=== PATIENT | female | born 1950 | race Caucasian/White ===

== ENCOUNTER 2024-03-23 21:53 | Emergency (ER) | payer MEDICARE, OTHER, SELFPAY ==
--- NOTE | ~2024-03-23 | XR_ITS ---
Portable chest x-ray Comparison: 02/23/2015 Clinical History: Infection Findings: Right-sided Mediport is unchanged. Small right pleural effusion present. Left lung clear. Cardiomediastinal silhouette is stable. Bones and soft tissues are unremarkable. Impression: Small right pleural effusion. Right-sided Mediport. Reviewed, dictated and finalized at location . ENGINEER Impression: Small right pleural effusion. Right-sided Mediport.
[2024-03-23 21:52] VITALS: BP 147/64; PULSE 84; RESP 14; TEMP 36.4; O2SAT 99
--- NOTE | 2024-03-23 22:10 | ECG_ITS ---
Test Date: 2024-03-23 22:31:06 Measurements Intervals [place] Rate: 86 P: 44 IA: 142 QRS: 46 QRSD: 70 T: 69 QT: 325 QTc: 391 Interpretive Statements SINUS RHYTHM No previous ECG available for comparison Electronically Signed On 03-24-2024 18:09:29 [employer] by Chauncey Quigley M.D.
[2024-03-23] MEDS: SODIUM CHLORIDE 0.9% IV 1,000 ML 999 ML IV CONT (22:33)
[2024-03-23 22:46] LABS: Basophils Percent Auto 0.4 % (0.2-1.2); Eosinophils Percent Auto 0.1 % (0-4.4); Hematocrit 38.5 % (37.0-47.0); Hemoglobin 11.5 g/dL (12.0-15.0); Immature Granulocyte Absolute 0.07 K/mm3 (0.00-0.031); Immature Granulocyte Percent A 0.7 % (0-0.5); Lymphocytes Absolute Auto 0.67 K/mm3 (0.9-3.2); Lymphocytes Percent Auto 6.3 % (18.3-44.2); Mean Corpuscular HGB Conc 29.9 g/dl (32-36); Mean Corpuscular Hemoglobin 27.7 pg (26-34); Mean Corpuscular Volume 92.8 fl (80-100); Mean Platelet Volume 9.1 fl (7.4-10.4); Monocytes Absolute Auto 0.5 K/mm3 (0.1-0.6); Monocytes Percent Auto 4.5 % (2.6-8.5); Neutrophils Absolute Auto 9.3 K/mm3 (1.3-6.7); Platelet Count Result 384 k/mm3 (150-375); Red Blood Count 4.15 M/mm3 (4.2-5.4); White Blood Count 10.6 K/mm3 (4.5-10.0)
[2024-03-23 23:00] LABS: Alanine Aminotransferase 14 U/L (6-35); Albumin Level 3.1 g/dL (3.5-5.1); Alkaline Phosphatase 66 U/L (38-126); Anion Gap 2 mmol/L (4-12); Aspartate Amino Transferase 47 U/L (14-36); Bilirubin,Total 0.3 mg/dL (0.2-1.3); Blood Urea Nitrogen 16 mg/dL (7-17); Calcium 9.4 mg/dL (8.4-10.2); Carbon Dioxide 30 mmol/L (22-30); Chloride 104 mmol/L (98-107); Estimated CRCL calculation 70 ml/min; Estimated Glomerular Filt Rate > 60; Glucose 114 mg/dL (65-110); Magnesium 2.1 mg/dL (1.6-2.3); Potassium 4.8 mmol/L (3.4-5.0); Sodium 136 mmol/L (137-145)
[2024-03-23 23:05] VITALS: PULSE 85; RESP 16; O2SAT 97
[2024-03-23 23:15] VITALS: PULSE 83; RESP 17
[2024-03-23 23:22] LABS: Influenza A QL RT-PCR Negative (Negative); Influenza B QL RT-PCR Negative (Negative); SARS-CoV-2 RNA PCR Negative (Negative)
[2024-03-23 23:30] VITALS: PULSE 83; RESP 16
[2024-03-23 23:45] VITALS: PULSE 89; RESP 17; O2SAT 99
--- NOTE | 2024-03-23 23:47 | ED_ITS ---
HPI - General Adult General Chief complaint: Weakness Stated complaint: weakness, dizzy, vomit x 1 Time Seen by Provider: 03/23/24 22:03 History of Present Illness HPI narrative: Patient is a 73-year-old female who presents to the emergency department this evening complaining of generalized weakness and lightheadedness which occurred prior to arrival. Patient states that she was in the kitchen and loading the program project analyst when she had a sudden onset episode of lightheadedness/dizziness and felt like she was going to pass. Patient then was assisted to the floor by her . She denies falling or hitting her head. Patient is currently undergoing chemotherapy for breast cancer. States that she was in remission for 7 years and then this past her breast cancer returned and she started chemotherapy in October. Patient is currently pending evaluation for radiation therapy as she has not responded to the chemotherapy treatment. Patient states that when her symptoms started she felt nauseous but at this time she is currently denying any symptoms stating that her symptoms have completely resolved and she feels great. She denies any active chest pain or shortness of breath, nausea vomiting, abdominal pain, dysuria or hematuria, constipation or diarrhea, fevers or chills. There are no additional modifying, alleviating, or precipitating factors at this time. Related Data Home Medications ?Medication ?Instructions ?Recorded ?Confirmed ?Last Taken ?Type alendronate 70 mg tablet 70 mg PO WEEKLY 05/13/21 05/13/21 Unknown History cholecalciferol (vitamin D3) 50 50 mcg PO DAILY 05/13/21 05/13/21 Unknown History mcg (2,000 unit) capsule rivaroxaban 20 mg tablet (Xarelto) 20 mg PO DAILY 05/13/21 05/13/21 Unknown History Allergies Allergy/AdvReac Type Severity Reaction Status Date / Time No Known Allergies Allergy Verified 03/23/24 22:03 Review of Systems 2 Review of Systems: All systems are reviewed and are negative unless stated otherwise in the HPI. FOR[facility]LY [facility] Past Medical History Medical History Current every day smoker 50 pack-year history Osteoporosis History of DVT of lower extremity right calf Breast cancer metastasized to bone (2016) Cancer of breast Surgical History Surgical History History of left cataract extraction (~2015) Hx of left mastectomy (~09/2015) Family History Family History Father Hypertension Diabetes mellitus Sibling Throat cancer Sibling Dementia Social History Social History Social History: lives with . 3 children/2 girls and 1 boy. 3 grandchildren. Smoking packs per day: 1 Smoking cigarettes per day: 20.0 Years smoked: 50 Smoking pack-years: 50.00 Smoking status: Current every day smoker Tobacco type: cigarettes Alcohol intake: never Substance use: never Substance use type: does not use Living arrangements: with family Occupation/Education: retired Additional occupation/education comments: Teacher Gender identity (if verbalized by the patient): Female Sexual Orientation (if Verbalized by the Patient): Straight or Heterosexual Agree to blood products: Yes Exam 2 Narrative: General: Alert, awake, afebrile, in no acute distress. HEENT: PERRL, no rhinorrhea, no post nasal drip, oropharynx clear. Neck: Trachea midline, no JVD, no lymphadenopathy. Cardiovascular: Regular rate and rhythm, no murmurs, rubs or gallops, no peripheral edema. Respiratory: Clear to auscultation bilaterally, no tachypnea, no wheezing, no rhonchi, no rubs, no respiratory distress. Abdomen: Soft, nontender, nondistended, no rebound, no guarding, no peritoneal signs. Musculoskeletal: No joint swelling or deformity, normal muscle tone, intact bilateral hip flexors and knee extension. Skin: No rashes or petechia, no signs of infection, minor skin abrasions to bilateral forearms. Psychiatric: Alert and oriented, normal behavior and judgment for situation. Neurological: Alert and oriented to person, place, and time. Follows all commands. No focal deficits, speech is clear and fluent. Course Vital Signs Vital signs: Vital Signs Temperature 97.6 F 03/23/24 21:52 Pulse Rate 84 03/23/24 21:52 Respiratory Rate 14 03/23/24 21:52 Blood Pressure 147/64 H 03/23/24 21:52 Pulse Oximetry 99 03/23/24 21:52 Oxygen Delivery Room Air 03/23/24 21:52 Temperature 97.6 F 03/23/24 21:52 Pulse Rate 84 03/23/24 21:52 Respiratory Rate 14 03/23/24 21:52 Blood Pressure 147/64 H 03/23/24 21:52 Pulse Oximetry 99 03/23/24 21:52 Oxygen Delivery Room Air 03/23/24 21:52 Medical Decision Making MDM Narrative Medical decision making narrative: The patient was evaluated by myself in the emergency department. History is obtained from patient who is an independent historian and physical exam was performed. External medical records were reviewed at this time. IV was established and pertinent tests were ordered. Patient was administered 1 L IV fluid bolus with normal saline. EKG was obtained which revealed sinus rhythm at a rate of 86 beats per minute. No ST changes, T wave inversions or evidence of acute ischemia. EKG was independently interpreted by me and is currently pending official cardiology read. Laboratory results obtained revealing no acute process. Troponin negative. Viral swabs negative for COVID/influenza. Urinalysis unremarkable. Imaging studies obtained included CXR which was independently interpreted by me revealing no acute cardiopulmonary process, which is pending final radiology interpretation. At this time, I did discuss obtaining a CT angiogram of the chest to rule out a PE given patient's history of cancer and DVTs, however, patient declined this study. Patient states that she does not tolerate IV contrast well as it upsets her stomach. Patient also states that she has had a lot of recent CT scans of her chest at [facility]. She is also currently on Eliquis. Patient would rather follow-up with her oncologist/primary care physician. Family members present at bedside including the patient's daughter and are agreeable with this plan. Differential diagnosis considerations include dehydration, electrolyte derangements, acute coronary syndrome, pulmonary emboli, arrhythmia. Comorbidities impacting this visit include active of breast cancer currently on chemotherapy. I have evaluated and discussed social determinants of health with the patient that could potentially impact subsequent diagnosis and treatment plans. On repeat assessment of the patient, reevaluation revealed that the patient is doing well and is in no acute distress. Patient symptoms have improved since she arrived to our emergency department. Repeat vital signs were all reviewed and noted to be stable. Differential diagnosis and treatment plan were discussed with the patient at bedside. Patient agrees with discussion and after shared medical decision making agrees with discharge. All questions were answered to the patient's satisfaction. Patient will follow up with her PCP/ Oncologist in 3-5 days. Patient was provided with strict return precautions and instructed to return to the emergency department if any new or worsening symptoms develop. The patient was discharged in stable condition. Vital Signs Vital Signs: Vital Signs Temperature 97.6 F 03/23/24 21:52 Pulse Rate 84 03/23/24 21:52 Respiratory Rate 14 03/23/24 21:52 Blood Pressure 147/64 H 03/23/24 21:52 Pulse Oximetry 99 03/23/24 21:52 Oxygen Delivery Room Air 03/23/24 21:52 Temperature 97.6 F 03/23/24 21:52 Pulse Rate 84 03/23/24 21:52 Respiratory Rate 14 03/23/24 21:52 Blood Pressure 147/64 H 03/23/24 21:52 Pulse Oximetry 99 03/23/24 21:52 Oxygen Delivery Room Air 03/23/24 21:52 Lab Data 03/23/24 22:39 03/23/24 22:39 Labs: Lab Results 03/23/24 03/24/24 Range/Units 22:39 00:32 WBC 10.6 H (4.5-10.0) K/mm3 RBC 4.15 L (4.2-5.4) M/mm3 Hgb 11.5 L (12.0-15.0) g/dL Hct 38.5 (37.0-47.0) % MCV 92.8 (80-100) fl MCH 27.7 (26-34) pg MCHC 29.9 L (32-36) g/dl RDW 15.0 H (11.5-14.5) % Plt Count 384 H (150-375) k/mm3 MPV 9.1 (7.4-10.4) fl Immature Gran % (Auto) 0.7 H (0-0.5) % Neut % (Auto) 88.0 H (45.5-73.1) % Lymph % (Auto) 6.3 L (18.3-44.2) % [place] % (Auto) 4.5 (2.6-8.5) % Eos % (Auto) 0.1 (0-4.4) % Baso % (Auto) 0.4 (0.2-1.2) % Lymph # (Auto) 0.67 L (0.9-3.2) K/mm3 [place] # (Auto) 0.5 (0.1-0.6) K/mm3 Eos # (Auto) 0.0 (0-0.3) K/mm3 Baso # (Auto) 0.0 (0.0-0.1) K/mm3 Abs Immat Gran (auto) 0.07 H (0.00-0.031) K/mm3 Absolute Neuts (auto) 9.3 H (1.3-6.7) K/mm3 Absolute Nucleated RBC 0.000 (0.0-0.012) K/mm3 Nucleated RBC % 0.0 (0.0-0.2) % Sodium 136 L (137-145) mmol/L Potassium 4.8 (3.4-5.0) mmol/L Chloride 104 (98-107) mmol/L Carbon Dioxide 30 (22-30) mmol/L Anion Gap 2 L (4-12) mmol/L BUN 16 (7-17) mg/dL Creatinine 0.49 L (0.7-1.0) mg/dL Estim Creat Clear Calc 70 ml/min Estimated GFR > 60 (59 - ) Glucose 114 H (65-110) mg/dL Calcium 9.4 (8.4-10.2) mg/dL Magnesium 2.1 (1.6-2.3) mg/dL Total Bilirubin 0.3 (0.2-1.3) mg/dL AST 47 H (14-36) U/L ALT 14 (6-35) U/L Alkaline Phosphatase 66 (38-126) U/L Troponin I < 0.012 (0.000-0.034) ng/mL Total Protein 6.0 L (6.3-8.2) g/dL Albumin 3.1 L (3.5-5.1) g/dL Urine Color Yellow (Yellow) Urine Appearance Clear (Clear) Urine pH 6.5 (5.0-9.0) Ur Specific [place] 1.021 (1.001-1.035) Urine Protein Negative (Negative) mg/dL Urine Glucose (UA) Negative (Negative) mg/dL Urine Ketones Trace H (Negative) mg/dL Ur Blood (Man) Negative (Negative) Urine Nitrate Negative (Negative) Urine Bilirubin Negative (Negative) Urine Urobilinogen 0.2 (<2.0) mg/dL Leukocyte Esterase Rfl Negative (Negative) GLADIS/UL Influenza A (RT-PCR) Negative (Negative) Influenza B (RT-PCR) Negative (Negative) SARS-CoV-2 RNA (RT-PCR) Negative (Negative) Discharge Plan Discharge Clinical Impression: Near syncope Patient Disposition: Home, Self-Care Condition: Improved Instructions: Antibiotic Form, Syncope (DC) Additional Instructions: Please follow-up with your primary care physician/oncologist within the next 3-5 days. Return to the emergency department if any new or worsening symptoms develop. Patient Language: Swedish Prescriptions: No Action Xarelto 20 mg tablet 20 mg PO DAILY Rx Instructions: must administer with evening meal cholecalciferol (vitamin D3) 50 mcg (2,000 unit) capsule 50 mcg PO DAILY alendronate 70 mg tablet 70 mg PO WEEKLY Follow-up/Referrals: Katie,Tito Grider MD [Primary Care Provider] - 3 Days Time of Disposition: 00:08
[2024-03-24] VITALS: PULSE 90; RESP 15
[2024-03-24 00:11] LABS: Troponin I < 0.012 ng/mL (0.000-0.034)
[2024-03-24 00:15] VITALS: PULSE 100
[2024-03-24 00:30] VITALS: PULSE 93; RESP 15; O2SAT 96
[2024-03-24 00:38] LABS: Add Urine Microscopic? NO; Appearance Urine Clear (Clear); Bilirubin Urine Negative (Negative); Blood Urine Negative (Negative); Color Urine Yellow (Yellow); Glucose Urine UA Negative (Negative); Ketones Urine Trace mg/dL (Negative); Leukocyte Esterase Ur Negative LEU/UL (Negative); Nitrate Urine Negative (Negative); Protein Urine Negative (Negative); Specific Grav Ur 1.021 (1.001-1.035); Urobilinogen Urine 0.2 mg/dL (<2.0); pH Urine 6.5 (5.0-9.0)
== END 2024-03-24 01:23 | disposition home or self-care (01) ==
PROVIDERS: Emergency Provider Emergency Medicine; PCP Internal Medicine
DX: R55 Syncope and collapse (principal); M81.0 Age-related osteoporosis without current pathological fracture; Z86.718 Personal history of other venous thrombosis and embolism; F17.210 Nicotine dependence, cigarettes, uncomplicated; Z85.3 Personal history of malignant neoplasm of breast; Z85.830 Personal history of malignant neoplasm of bone
CPT/HCPCS: 36415; 71045; 80053; 81003; 83735; 84484; 85025; 87636; 93005; 96360; 99284; J7030

== ENCOUNTER 2024-04-18 09:43 | Emergency (ER) | payer MEDICARE, OTHER, SELFPAY ==
[2024-04-18] VITALS (10 sets, daily range): BP systolic 119–143; BP diastolic 60–76; PULSE 89–99; RESP 15–22; TEMP 37; O2SAT 91–98
--- NOTE | ~2024-04-18 | XR_ITS ---
EXAMINATION: XR chest 1V DATE: 04/18/2024 10:51 INDICATION: Fall. TECHNIQUE: A single frontal view of the chest was obtained. COMPARISON: Chest 03/23/2024 FINDINGS: There is a moderate-sized right pleural effusion. There are airspace opacities at right racheal g base. No pneumothorax. The heart size is normal. There is a right subclavian port with tip in super ior vena cava. There are changes of left mastectomy. IMPRESSION: 1. Moderate-sized right pleural effusion with mild worsening. 2. Airspace opacities at right lung base, consistent with atelectasis versus pneumonia. Reviewed, dictated and finalized at location A. [employer] IMPRESSION: 1. Moderate-sized right pleural effusion with mild worsening. 2. Airspace opacities at right lung base, consistent with atelectasis versus pn eumonia.
--- NOTE | ~2024-04-18 | XR_ITS ---
EXAMINATION: XR hip RT min 3V w AP pelvis DATE: 04/18/2024 10:51 INDICATION: Fall. TECHNIQUE: An anteroposterior view of the pelvis and 3 views of right hip were obtained. COMPARISON: None. FINDINGS: There is a comminuted intertrochanteric and subtrochanteric fracture of proximal right femu r. The main distal fracture fragment demonstrates 20 degrees posterior angulation. There is mild left hip osteoarthritis. There is severe lumbar spondylosis. IMPRESSION: 1. Intertrochanteric and subtrochanteric fracture of proximal right femur. Reviewed, dictated and finalized at location A. STRIPPER
--- OUTSIDE RECORDS SUMMARY | 2024-04-18 09:45 | XMS_ITS | Referral Summary ---
Author Organization [facility] Address [address] [place] [address] Care Team Providers Care Slurry Worker Name Role Phone Unavailable Primary Care Provider Unavailabl e Source Comments [facility],non-owned Affiliates and Associated Physician Practices is amultiple site organization consisting of ambulatory clinics and hospital sitesin [place], [place], [place] and [place]. This disclosure is being madepursuant to the Care Everywhere program and may not contain all information available regarding this patient. Last updated 17.[facility]Port Social History Tobacco Use Types Packs/Day Years Used Date Smoking Tobacco: Never Assessed Sex and Gender Information Value Date Recorded Sex Assigned at Not on file Gender Identity Not on file Sexual Orientation Not on file Plan of Treatment Not on file
--- OUTSIDE RECORDS SUMMARY | 2024-04-18 09:45 | XMS_ITS | Clinical Summary ---
Author Organization [facility] Address [address], [facility] [address] [place] [address] Phone Care Team Providers Care Director Of Individual Giving Name Role Phone Tito Wilson MD Unavailable [phone] Provider, Not On File Primary Care Provider Unav ailable Allergies Active Allergy Reactions Criticality Noted Date Comments Iodinated Contrast Media Other (see Comments) 06/07/2020 Hot, dizzy, flushed Medications Cyanocobalamin (VITAMIN B 12 PO) Take by mouth. Active [place]-3 Fatty Acids (OMEGA-3 FISH OIL PO) Take by mouth. Ac tive Cholecalciferol (Vitamin D3) 50 MCG (1999 UT) TabletIndications: Vitamin D deficiency TAKE 1 TABLET BY MOUTH EVERY DAY 90 Tablet 06/10/19 23 Active vitamin E 100 UNIT Capsule Take 100 Units by mouth. Active alendronate (FOSAMAX) 70 MG TabletIndications: Osteoporosis, unspecified osteoporosis type, unspecified pathological fracture presence TAKE 1 TABLET BY MOUTH EVERY 7 DAYS 12 Tablet 3 10/05/19 24 Active ondansetron (ZOFRAN) 4 MG TabletIndications: Inflammatory carcinoma of left breast (HCC) Take 1 Tablet by mouth every 6 hours as needed for Nausea - 1st line. 40 Tablet 3 10/24/19 24 Active prochlorperazine (COMPAZINE) 10 MG TabletIndications: Inflammatory carcinoma of left breast (HCC) Take 1 Tablet by mouth every 4 hours as needed for Nausea - 1st line. 40 Tablet 3 10/24/19 24 Active apixaban (ELIQUIS) 5 MG TabletIndications: History of Thromboembolic Disease Take 1 Tablet by mouth 2 times daily. Indications: History of Disease involving a Thrombosis or an Embolism 02/07/20 Active apixaban (ELIQUIS) 5 MG TabletIndications: History of Thromboembolic Disease Take 1 Tablet by mouth 2 times daily. Indications: History of Disease involving a Thrombosis or an Embolism 04/03/19 25 Active rivaroxaban (Xarelto) 20 MG TabletIndications: History of Thromboembolic Disease Take 1 Tablet by mouth daily. Take with food. Indications: History of Disease involving a Thrombosis or an Embolism 09/20/19 025 Discontin ued(Avail ability) rivaroxaban (Xarelto) 20 MG TabletIndications: History of Thromboembolic Disease Take 1 Tablet by mouth daily (with dinner). Take with food. Indications: History of Disease involving a Thrombosis or an Embolism 10/18/19 025 Discontin ued(Avail ability) rivaroxaban (Xarelto) 20 MG TabletIndications: History of Thromboembolic Disease Take 1 Tablet by mouth daily. Take with food. Indications: History of Disease involving a Thrombosis or an Embolism 12/06/19 025 Discontin ued(Avail ability) rivaroxaban (Xarelto) 20 MG TabletIndications: History of Thromboembolic Disease Take 1 Tablet by mouth daily. Take with food. Indications: History of Disease involving a Thrombosis or an Embolism 12/27/19 025 Discontin ued(Avail ability) rivaroxaban (XARELTO) 20 MG TabletIndications: History of Thromboembolic Disease Take 1 Tablet by mouth daily (with dinner). Take with food. 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 Resolved Problems Problem Noted Date Diagnosed Date Resolved Date Constipation 07/08/2015 10/07/2015 Hypokalemia 04/08/2015 06/03/2015 Constipation 03/04/2015 06/17/2015 Nausea 03/04/2015 06/17/2015 Right leg swelling 02/18/2015 6 Encounters Date Type Department Care Team Description 04/10/2024 10:15 AM BENCH ASSEMBLER BATTERY Office Visit [facility] [address] [address] Meredith Colon, HEALTH PROMOTION EDUCATOR, GOLD RECLAIMER 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) 04/10/2024 Travel 04/03/2024 10:30 AM BENCH ASSEMBLER BATTERY Clinical Support [facility] [address] [address] Nurse, [facility] [place] 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) 04/03/2024 10:15 AM BENCH ASSEMBLER BATTERY Office Visit [facility] [address] [address] Meredith Colon, HEALTH PROMOTION EDUCATOR, GOLD RECLAIMER 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) 04/03/2024 Travel 03/25/2024 10:00 AM BENCH ASSEMBLER BATTERY Care Management [facility] [address] [phone] Navigator, [facility] Nurse Care Management (EDUCATION PREP) 03/20/2024 9:45 AM BENCH ASSEMBLER BATTERY Clinical Support [facility] [address] [address] 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); Malignant neoplasm metastatic to bone (HCC) 03/20/2024 9:30 AM BENCH ASSEMBLER BATTERY Office Visit [facility] [address] [address] Tito Wilson MD Malignant neoplasm metastatic to bone (HCC) (Primary Dx); Memory changes; Elevated liver enzymes; Inflammatory carcinoma of left breast (HCC) 03/20/2024 Refill [facility] [address] [address] Tito Wilson MD Medication Refill 03/20/2024 Travel 02/28/2024 9:45 AM BENCH ASSEMBLER BATTERY Clinical Support [facility] [address] [place] [phone] 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); Malignant neoplasm metastatic to bone (HCC); Elevated liver enzymes; Memory changes 02/28/2024 Travel 02/07/2024 9:30 AM BENCH ASSEMBLER BATTERY Clinical Support [facility] [address] [facility] [address] [address] 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); Acute deep vein thrombosis (DVT) of femoral vein of right lower extremity (HCC); Acute deep vein thrombosis (DVT) of right lower extremity, unspecified vein (HCC) 02/07/2024 9:15 AM BENCH ASSEMBLER BATTERY Office Visit [facility] [address] [address] Tito Wilson MD Malignant neoplasm metastatic to bone (HCC) (Primary Dx); Hypercalcemia; Elevated liver enzymes; Memory changes; Inflammatory carcinoma of left breast (HCC); Acute deep vein thrombosis (DVT) of femoral vein of right lower extremity (HCC) 02/07/2024 Travel 01/17/2024 9:45 AM BENCH ASSEMBLER BATTERY Clinical Support [facility] [address] [address] 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) 01/17/2024 9:30 AM BENCH ASSEMBLER BATTERY Office Visit [facility] [address] [phone] Meredith Colon, HEALTH PROMOTION EDUCATOR, GOLD RECLAIMER 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); Malignant neoplasm metastatic to bone (HCC); High risk medication use 01/17/2024 Travel from Last 3 Months Immunizations Immunization Administration Dates Next Due Covid-19 Vaccine, Vector-nr, Rs-ad26, Pf, 0.5 Ml (Room 21 Media/J&CRMnext) 06/09/2020 Family History Medical History Relation Name Comments Cancer Brother throat Diabetes Father type 2 Heart Attack Father 2 of them Hypertension Father Stroke Mother Relation Name Status Comments Brother Father Mother Social History Tobacco Use Types Packs/Day Years Used Date Smoking Tobacco: Former Cigarettes 1 53.1 S tarted: 03/05/1971 Smokeless Tobacco: Never Tobacco Cessation:Counseling Given: Not Answered Alcohol Use Standard Drinks/Week Comments Yes 4 (1 standard drink = 0.6 oz pur e alcohol) PHQ-2 Answer Date Recorded Total Score - Questions 1-9 0 04/2021 Comments Unknown Sex and Gender Information Value Date Recorded Sex Assigned at Not on file Legal Sex Female 10:58 AM BENCH ASSEMBLER BATTERY Gender Identity Not on file Sexual Orientation Not on file Last Filed Vital Signs Vital Sign Reading Time Taken Comments Blood Pressure 152/84 04/10/2024 10:08 AM BENCH ASSEMBLER BATTERY Pulse 115 04/10/2024 10:08 AM BENCH ASSEMBLER BATTERY Temperature 36.8 C (98.3 F) 04/10/2024 10:08 AM BENCH ASSEMBLER BATTERY Respiratory Rate 18 04/10/2024 10:08 AM BENCH ASSEMBLER BATTERY Oxygen Saturation 95% 04/10/2024 10:08 AM BENCH ASSEMBLER BATTERY Inhaled Oxygen Concentration - - Weight 54.4 kg (120 lb) 04/10/2024 10:08 AM BENCH ASSEMBLER BATTERY Height 160 cm (5' 3 ) 04/10/2024 10:08 AM BENCH ASSEMBLER BATTERY Body Mass Index 21.26 04/10/2024 10:08 AM BENCH ASSEMBLER BATTERY Plan of Treatment Upcoming Encounters Date Type Department Care Team (Late st Contact Info) Description 04/24/2024 10:15 AM BENCH ASSEMBLER BATTERY Office Visit [facility] [address] [address] Meredith Colon, HEALTH PROMOTION EDUCATOR, GOLD RECLAIMER [address] [place], [place] [phone] 05/01/2024 10:30 AM BENCH ASSEMBLER BATTERY Clinical Support [facility] [address] [address] Nurse, [facility] [place] Health Maintenance Due Date Last Done Comments Hepatitis C Virus (HCV) Screening 1950 TdaP Immunization 1950 Pneumococcal Immunization (50+ years) (1 of 2 - PCV) 1969 Zoster Immunization (1 of 2) 1969 Colonoscopy 11/25/1995 Colorectal Cancer Screening 11/25/1995 Cologuard 2000 Immunochemical Fecal Occult Blood 2000 Respiratory Syncytial Virus (RSV) Immunization (Adult) (1 - Risk 60-74 years 1-dose series) 2010 Mammogram 07/13/2023 07/12/2022, 02/18/2015 Influenza Immunization (#1) 2023 SARS-COV-2 Immunization ( season) 2023 03/15/2021, 06/09/2020 DEXA Bone Density 01/19/2025 01/19/2023, 12/30/2020 Lung Cancer Screening Discontinued 02/01/2024 , 08/23/2023, 02/19/2023, Additional history exists Hepatitis B Immunization Aged Out No longer eligible based on patient's age to complete this topic Meningococcal Immunization (ACWY) Aged Out No longer eligible based on patient's age to complete this topic Rotavirus Immunization Aged Out No lo nger eligible based on patient's age to complete this topic Procedures Procedure Name Priority Date/Time Associated Diagnosis Comments CBC WITH AUTO DIFF OH Routine 02/28/2024 9:34 AM BENCH ASSEMBLER BATTERY Inflammatory carcinoma of left breast (HCC) CMP (COMPREHENSIVE METABOLIC PANEL) Routine 02/28/2024 9:34 AM BENCH ASSEMBLER BATTERY Malignant neoplasm metastatic to bone (HCC) Elevated liver enzymes Memory changes Inflammatory carcinoma of left breast (HCC) LACTATE DEHYDROGENASE (LD) Routine 02/28/2024 9:34 AM BENCH ASSEMBLER BATTERY Malignant neoplasm metastatic to bone (HCC) Elevated liver enzymes Memory changes Inflammatory carcinoma of left breast (HCC) CANCER ANTIGEN (CA) 15-3 Routine 024 9:34 AM BENCH ASSEMBLER BATTERY Malignant neoplasm metastatic to bone (HCC) Elevated liver enzymes Memory changes Inflammatory carcinoma of left breast (HCC) CARCINOEMBRYONIC ANTIGEN (CEA) Routine 02/28/2024 9:34 AM BENCH ASSEMBLER BATTERY Malignant neoplasm metastatic to bone (HCC) Elevated liver enzymes Memory changes Inflammatory carcinoma of left breast (HCC) CT CHEST W CONTRAST Routine 03/12/2017 from Last 3 Months or Most Recently Relevant to Health Maintenance Results * (ABNORMAL) CBC WITH AUTO DIFF OH (02/28/2024 9:34 AM BENCH ASSEMBLER BATTERY) WBC 5.3 4.0 - 10.0 10*3/uL [facility] HGB 11.4 11.2 - 15.7 g/dL [facility] HCT 37.2 34.1 - 44.9 % [facility] PLT 475(H) 163 - 369 10*3/uL [facility] MPV 8.7(L) 9.4 - 12.4 fL [facility] RBC 4.07 3.93 - 5.22 10*6/uL [facility] MCV 91 79 - 95 fL [facility] MCH 28.0 25.6 - 32.2 pg [facility] MCHC 30.6(L) 32.2 - 36.5 g/dL [facility] RDW 14.6(H) 11.6 - 14.4 % [facility] Neutrophils % 67.9(H) 36.0 - 66.0 % [facility] Lymphocytes % 20.6 19.0 - 40.0 % [facility] Monocytes % 8.9 4.1 - 12.1 % [facility] Eosinophils % 1.1 0.0 - 3.5 % [facility] Basophils % 1.3(H) 0.0 - 1.0 % [facility] Absolute Neutrophils 3.6 1.4 - 6.6 10*3/uL [facility] Absolute Lymphocytes 1.1 0.8 - 4.0 10*3/uL [facility] Absolute Monocytes 0.5 0.2 - 1.2 10*3/uL [facility] Absolute Eosinophils 0.1 0.0 - 0.4 10*3/uL [facility] Absolute Basophils 0.1 0.0 - 0.1 10*3/uL [facility] 02/28/2024 9:34 AM BENCH ASSEMBLER BATTERY us Tito Wilson MD LAB SEND OUTS Final Resul t [facility] [address] [address], [place] [phone] * (ABNORMAL) LACTATE DEHYDROGENASE (LD) (02/28/2024 9:34 AM BENCH ASSEMBLER BATTERY) LDH 120(L) 140 - 271 U/L [facility] Blood 02/28/2024 9:34 AM BENCH ASSEMBLER BATTERY Narrative [facility] - 02/28/2024 10:38 AM BENCH ASSEMBLER BATTERY Release to patient->Immediate Tito Wilson MD CHEMISTRY ORDERABLES Final Result [facility] [address] [address], [place] [phone] * (ABNORMAL) CMP (COMPREHENSIVE METABOLIC PANEL) (02/28/2024 9:34 AM BENCH ASSEMBLER BATTERY) Glucose 107(H) 70 - 105 mg/dL [facility] Blood Urea Nitrogen 13 7 - 25 mg/dL [facility] Creatinine 0.5(L) 0.6 - 1.2 mg/dL [facility] Sodium 141 136 - 145 mEq/L [facility] Potassium 4.0 3.5 - 5.1 mEq/L [facility] Chloride 105 98 - 107 mEq/L [facility] Bicarbonate 29 21 - 31 mEq/L [facility] Total Bilirubin 0.2(L) 0.3 - 1.0 mg/dL [facility] Alk. Phosphatase 47 34 - 104 U/L [facility] Aspartate Aminotransferase 20 13 - 39 U/L [facility] Alanine Aminotransferase 9 7 - 52 U/L [facility] Total Protein 5.7(L) 6.4 - 8.9 g/dL [facility] Albumin 3.4(L) 3.5 - 5.7 g/dL [facility] Calcium 9.9 8.6 - 10.3 mg/dL [facility] Anion Gap 11.0 7.0 - 15.0 mEq/L [facility] Globulin 2.3 2.0 - 3.5 g/dL [facility] EGFR 99 >60 ml/min/1. 73m2 [facility] Comment: This eGFR is calculated using 2020 CKD-EPI Creatinine equation without race modifier based on the NKF-ASN task force recommendations Blood 02/28/2024 9:34 AM BENCH ASSEMBLER BATTERY Narrative [facility] - 02/28/2024 10:38 AM BENCH ASSEMBLER BATTERY Release to patient->Immediate IS THE PATIENT REQUIRED TO BE FASTING FOR 8 HOURS?->No us Tito Wilson MD CHEMISTRY ORDERABLES Final Result Performing Organization Address City/[facility]/ZIP Co de Phone Number [facility] [address] [place] [address], [place] [phone] * (ABNORMAL) CARCINOEMBRYONIC ANTIGEN (CEA) (02/28/2024 9:34 AM BENCH ASSEMBLER BATTERY) CEA 5.3(H) 0.0 - 5.0 ng/mL [facility] Comment: Olivier Paramagnetic Particle Chemiluminescent Immunoassay Method Blood 02/28/2024 9:34 AM BENCH ASSEMBLER BATTERY Narrative [facility] - 02/29/2024 11:15 AM BENCH ASSEMBLER BATTERY Release to patient->Immediate us Tito Wilson MD CHEMISTRY ORDERABLES Final Result [facility] [address] [place] [address], [place] [phone] * (ABNORMAL) CANCER ANTIGEN (CA) 15-3 (02/28/2024 9:34 AM BENCH ASSEMBLER BATTERY) CA15-3 35.5(H) 0.0 - 31.3 U/mL [facility] Comment: Olivier Paramagnetic Particle Chemiluminescent Immunoassay Method Blood 02/28/2024 9:34 AM BENCH ASSEMBLER BATTERY Narrative [facility] - 02/29/2024 11:31 AM BENCH ASSEMBLER BATTERY Release to patient->Immediate Tito Wilson MD CHEMISTRY ORDERABLES Final Result [facility] [address] [place] [address], [place] [phone] * CT CHEST W CONTRAST (03/12/2017) Anatomical Region Laterality Modality Chest N/A Other us Tito Wilson MD IMG CT ORDERABLES Final Res ult from Last 3 Months or Most Recently Relevant to Health Maintenance Insurance MEDICARE [employer] Care Teams Director Of Individual Giving Relationship Specialty Start Date End Date Provider, Not On File [place] PCP - General 06/29/22 Tito Wilson MD [address] [place] [phone] Consulting Physician Oncology 08/17/16
--- OUTSIDE RECORDS SUMMARY | 2024-04-18 09:45 | XMS_ITS | Encounter Summary ---
Author Organization [facility] Address [address] [place] [address] Phone Care Team Providers Care Pipe Coremaker Name Role Phone Aftab Bauer MD Primary Care Provider [phone] Tito Wilson MD Unavailable [phone] Provider, Not On File Primary Care Provider Unav ailable Reason for Visit * Reason Comments Medication Refill Encounter Details Date Type Department Care Team (Late st Contact Info) Description 06/09/2022 Refill [facility] [address] [address] Alyssa Daniel, TRAFFIC MONITOR SPECIALIST, FILM SOUND COORDINATOR [address] [place] [address] Medication Refill Social History Tobacco Use Types Packs/Day Years Used Date Smoking Tobacco: Every Day Cigarettes 1 53.1 Started: 03/05/1971 Smokeless Tobacco: Never Alcohol Use Standard Drinks/Week Comments Yes 4 (1 standard drink = 0.6 oz pur e alcohol) PHQ-2 Answer Date Recorded Total Score - Questions 1-9 0 06/0 04/2021 Comments Unknown Sex and Gender Information Value Date Recorded Sex Assigned at Not on file Legal Sex Female 10:58 AM DEHYDRATOR TENDER Gender Identity Not on file Sexual Orientation Not on file COVID-19 Exposure Response Date Recorded In the last 10 days, have yo u been in contact with someone who was confirmed or suspected to have Coronavirus/COVID-19? No / Unsure 06/08/2022 1:50 PM CDT documented as of this encounter Plan of Treatment Upcoming Encounters Date Type Department Care Team (Late st Contact Info) Description 04/24/2024 10:15 AM DEHYDRATOR TENDER Office Visit [facility] [address] [address] Meredith Colon, TRAFFIC MONITOR SPECIALIST, FILM SOUND COORDINATOR [address] [place] [address] 05/01/2024 10:30 AM DEHYDRATOR TENDER Clinical Support [facility] [address] [address] [address] Nurse, [facility] [place] documented as of this encounter Visit Diagnoses Diagnosis Vitamin D deficiency Unspecified vitamin D deficiency documented in this encounter Additional Health Concerns Assessment Noted Time PHQ-9 Depression Total Score: 0 01/14/20 21 1:59 PM DEHYDRATOR TENDER documented as of this encounter Care Teams Pipe Coremaker Relationship Specialty Start Date End Date Aftab Bauer MD [address] [place] [address] PCP - General Family Medicine 03/04/15 06/18/22 Provider, Not On File [place] PCP - General 06/29/22 Tito Wilson MD [address] [place] [address] Consulting Physician Oncology 08/17/16 documented as of this encounter
--- OUTSIDE RECORDS SUMMARY | 2024-04-18 09:45 | XMS_ITS | Clinical Summary ---
Author Organization [facility] Address [address] [place] [address] Care Team Providers Care Bell Staff Name Role Phone Daniela Wilson MD Unavailable [phone] Merari Eller MD Primary Care Provider Talon Hunter MD Unavailable Allergies No known active allergies Medications rivaroxaban (XARELTO) 20 MG Tab tablet Take 1 tablet (20 mg total) by mouth. 9 Active Ca Phosphate-Ramona calciferol 115-2000 MG-UNIT Tab Active OMEGA-3 FATTY ACIDS OR Active vitamin B-12 1000 MCG tablet Acti ve vitamin E 100 UNIT capsule Take 1 capsule (100 Units total) by mouth daily. Active alendronate (FOSAMAX) 70 MG tablet Take 1 tablet (70 mg total) by mouth every 7 days. Active Cholecalciferol 50 MCG (2000 UT) Tab Take 1 tablet by mouth daily. 3 Active palbociclib (IBRANCE) 75 MG capsule Take 75 mg by mouth. 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 Encounters Date Type Department Care Team Description 04/08/2024 9:10 AM STATE EDITOR - 04/08/2024 11:59 PM STATE EDITOR Hospital Encounter [facility] [address] [place] [address] Meredith Zurita NP Discharge Disposition: Home or Self Care (Routine Discharge) 04/08/2024 Orders Only [facility] [address] [place] [address] Meredith Zurita NP 04/08/2024 Travel 03/28/2024 12:45 PM STATE EDITOR - 03/28/2024 11:59 PM STATE EDITOR Hospital Encounter [facility] Radiation Oncology [address] [place] [address] [place] [address] Talon Hunter MD Consult Discharge Disposition: Home or Self Care (Routine Discharge) 03/28/2024 Travel 03/20/2024 Telephone [facility] Radiation Oncology [address] [place] [address] [place] [address] Talon Hunter MD Appointment Request 03/20/2024 Orders Only [facility] [place] [address] Daniela Wilson MD 03/18/2024 10:05 AM STATE EDITOR - 03/18/2024 11:59 PM STATE EDITOR Hospital Encounter [facility] [address] [place] [address] Daniela Wilson MD Discharge Disposition: Home or Self Care (Routine Discharge) 03/18/2024 Orders Only [facility] [address] [place] [address] Daniela Wilson MD 03/18/2024 Travel 02/11/2024 8:34 AM STATE EDITOR - 02/11/2024 11:59 PM STATE EDITOR Hospital Encounter [facility] Nuclear Medicine [address] [place] [address] Meredith Zurita NP Discharge Disposition: Home or Self Care (Routine Discharge) 02/11/2024 Travel 02/05/2024 9:43 AM STATE EDITOR - 02/05/2024 11:59 PM STATE EDITOR Hospital Encounter [facility] [address] [facility] [place] [address] Meredith Zurita NP Discharge Disposition: Home or Self Care (Routine Discharge) 02/05/[address] [facility] [id number] [place] [address] Meredith Zurita NP 02/05/2024 Travel 02/01/2024 8:43 AM STATE EDITOR - 02/01/2024 11:59 PM STATE EDITOR [place] [address] [place] [address] Meredith Zurita NP Discharge Disposition: Home or Self Care (Routine Discharge) 02/01/2024 Travel 01/22/2024 8:38 AM STATE EDITOR - 01/22/2024 11:59 PM STATE EDITOR Hospital Encounter [facility] [address] [place] [address] Meredith Zurita NP Discharge Disposition: Home or Self Care (Routine Discharge) 01/22/2024 Travel 01/17/2024 Transcribe Orders [facility] Pre Access Team [address] [place] [address] Meredith Zurita NP from Last 3 Months Family History Medical History Relation Comments throat cancer Brother Diabetes Father Heart Attack Father x2 Hypertension Father Stroke Mother Breast Cancer Neg Hx Relation Status Comments Brother Father Mother Social History Tobacco Use Types Packs/Day Years Used Date Smoking Tobacco: Former Cigarettes 1 46.6 S tarted: 09/02/1977 Smokeless Tobacco: Never Tobacco Cessation:Counseling Given: Not Answered Alcohol Use Standard Drinks/Week Comments No 0 (1 standard drink = 0.6 oz pur e alcohol) AUDIT-C Answer Date Recorded Frequency of Alcohol Consumption Never 09/27/2018 Average Number of Drinks Not on file 019 Frequency of Binge Drinking Not on file 09/03 PHQ-2 Answer Date Recorded Patient Health Questionnaire-2 Score 0 06/15/2022 Comments No Sex and Gender Information Value Date Recorded Sex Assigned at Female 03/18/2024 10:11 AM STATE EDITOR Legal Sex Female 8:28 PM CDT Gender Identity Not on file Sexual Orientation Not on file Last Filed Vital Signs Vital Sign Reading Time Taken Comments Blood Pressure 129/82 03/28/2024 1:17 PM STATE EDITOR Pulse 103 03/28/2024 1:17 PM STATE EDITOR Temperature 36.8 C (98.2 F) 06/15/2022 3:09 PM CDT Respiratory Rate 18 07/07/2022 3:22 PM CDT Oxygen Saturation 94% 03/28/2024 1:17 PM STATE EDITOR Inhaled Oxygen Concentration - - Weight 53.7 kg (118 lb 6.4 oz) 06/15/2022 3:09 P M CDT Height 160 cm (5' 3 ) 03/28/2024 1:17 PM STATE EDITOR Body Mass Index 21.66 06/15/2022 3:09 PM CDT Plan of Treatment Health Maintenance Due Date Last Done Comments Colorectal Cancer Screening Colonoscopy (10 Years) 1950 Pneumococcal Vaccine: 65+ Years (1 of 2 - PCV) 1956 Hepatitis C 1968 DTaP, Tdap and Td Vaccines ( 1 - Tdap) 1969 Zoster Vaccines (1 of 2) 2000 RSV Immunization or 60+ Years (1 - Risk 60-74 years 1-dose series) 2010 Annual Medicare Wellness Visit 11/25/2015 COVID-19 Vaccine (2 - 2023-2 5 season) 2023 06/09/2020 Influenza Adult (#1) 2023 PHQ-2 (Physician [place]) 03/05/2024 06/15/2022 Mammogram Screening 07/12/2024 07/12/2022, 06/12/2017 Dexa Scan (General) Completed 01/19/2023, 01/19/2023, 12/30/2020 Meningococcal B Vaccine Aged Out No l onger eligible based on patient's age to complete this topic Meningococcal Vaccine Aged Out No nikolas macy eligible based on patient's age to complete this topic RSV Immunizations Under 20 Months Aged Out No longer eligible b ased on patient's age to complete this topic Procedures Procedure Name Priority Date/Time Associated Diagnosis Comments COMPREHENSIVE METABOLIC PANEL Routine 04/08/2024 9:16 AM STATE EDITOR 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) CBC W/DIFF AUTOMATED Routine 04/08/2024 9:16 AM STATE EDITOR 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) CA 15 3, SERUM Routine 03/18/2024 10:24 AM STATE EDITOR Malignant neoplasm metastatic to bone (CMS/HCC HHS/HCC) Elevated liver enzymes Memory changes 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) CARCINOEMBRYONIC ANTIGEN Routine 025 10:24 AM STATE EDITOR Malignant neoplasm metastatic to bone (CMS/HCC HHS/HCC) Elevated liver enzymes Memory changes 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) LDH, LACTATE DEHYDROGENASE Routine 03/18/2024 10:24 AM STATE EDITOR Malignant neoplasm metastatic to bone (CMS/HCC HHS/HCC) Elevated liver enzymes Memory changes COMPREHENSIVE METABOLIC PANEL Routine 03/18/2024 10:24 AM STATE EDITOR Malignant neoplasm metastatic to bone (CMS/HCC HHS/HCC) Elevated liver enzymes Memory changes CBC W/DIFF AUTOMATED Routine 03/18/2024 10:24 AM STATE EDITOR Malignant neoplasm metastatic to bone (CMS/HCC HHS/HCC) Elevated liver enzymes Memory changes NM BONE SCAN WHOLE BODY WO SPECT Routine 02/11/2024 11:46 AM STATE EDITOR Metastasis to bone (CMS/HCC HHS/HCC) CA 15 3, SERUM Routine 02/05/2024 10:06 AM STATE EDITOR 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) Malignant neoplasm metastatic to bone (CMS/HCC HHS/HCC) CARCINOEMBRYONIC ANTIGEN Routine 024 10:06 AM STATE EDITOR 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) Malignant neoplasm metastatic to bone (CMS/HCC HHS/HCC) LDH, LACTATE DEHYDROGENASE Routine 02/05/2024 10:06 AM STATE EDITOR 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) Malignant neoplasm metastatic to bone (CMS/HCC HHS/HCC) COMPREHENSIVE METABOLIC PANEL Routine 02/05/2024 10:06 AM STATE EDITOR 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) Malignant neoplasm metastatic to bone (CMS/HCC HHS/HCC) CBC W/DIFF AUTOMATED Routine 02/05/2024 10:06 AM STATE EDITOR 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) Malignant neoplasm metastatic to bone (CMS/HCC HHS/HCC) CT CHEST+ABD+PEL WO CON Routine 02/01/20 8:56 AM STATE EDITOR Metastasis to bone (CMS/HCC HHS/HCC) USE ECHOCARDIOGRAM Routine 01/22/2024 9: 18 AM STATE EDITOR High risk medication use BONE DENSITY/DEXA DEB 01/19/2023 10: 08 AM STATE EDITOR Osteoporosis, unspecified osteoporosis type, unspecified pathological fracture presence Malignant neoplasm of axillary tail of left breast in female, estrogen receptor positive (CMS/HCC HHS/HCC) MG DIAG ADD VIEW W [facility] RT Routine 07/12/2022 10:29 AM CDT 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 GLUCOSE 106(H) 70 - 99 MG/DL 04/08/2024 9:58 AM [facility] BUN 14 7 - 18 MG/DL 04/08/2024 9:58 AM [facility] CREATININE S/P/B 0.63 0.55 - 1.02 MG/DL 04/08/2024 9:58 AM [facility] SODIUM S/P/B 143 136 - 145 MMOL/L 04/08/2024 9:58 AM [facility] POTASSIUM S/P/B 3.6 3.5 - 5.1 MMOL/L 04/08/2024 9:58 AM [facility] CHLORIDE S/P/B 105 100 - 108 MMOL/L 04/08/2024 9:58 AM [facility] CO2 31.1 21 - 32 MMOL/L 04/08/2024 9:58 AM [facility] CALCIUM S/P/B 9.8 8.5 - 10.1 MG/DL 04/08/2024 9:58 AM [facility] BILIRUBIN TOTAL S/P/B 0.2 0.2 - 1.2 MG/DL 04/08/2024 9:58 AM [facility] TOTAL PROTEIN S/P/B 5.6(L) 6.4 - 8.2 G/DL 04/08/2024 9:58 AM [facility] ALBUMIN S/P/B 2.8(L) 3.4 - 5.0 G/DL 04/08/2024 9:58 AM [facility] AST 33 15 - 37 U/L 04/08/2024 9:58 AM [facility] ALT 16 14 - 55 U/L 04/08/2024 9:58 AM [facility] ALKALINE PHOSPHATASE S/P/B 72 50 - 136 U/L 04/08/2024 9:58 AM [facility] ANION GAP 6.9 5 - 15 MMOL/L 04/08/2024 9:58 AM [facility] BUN CREATININE RATIO 22.2 6 - 26 04/08/2024 9:58 AM [facility] A/G RATIO 1.0 1.0 - 2.0 RATIO 04/08/2024 9:58 AM [facility] GFR ESTIMATE >90 >90 ML/MIN/1.7 3 M2 04/08/2024 9:58 AM [facility] Comment: NOTE: eGFR is not calculated for patients <18 years of age. This is an estimated GFR calculation using the new CKD EPI creatinine equation without race and so does not require a correction factor for race. This estimated GFR should not be used for calculating drug doses. 04/08/2024 9:16 AM STATE EDITOR Meredith Zurita NP LABORATORY Final Result [facility] [address] [place] [address], * (ABNORMAL) CBC W/DIFF AUTOMATED (04/08/2024 9:16 AM STATE EDITOR) Only the most recent of3 resultswithin the time period is included. WBC 4.87 4.4 - 11.0 x10'3/uL 04/08/2024 9:38 AM [facility] RBC 4.22(L) 4.50 - 5.10 x10'6/uL 04/08/2024 9:38 AM [facility] HGB 11.7(L) 12.3 - 15.3 G/DL 04/08/2024 9:38 AM [facility] HCT 37.4 35.9 - 44.6 % 04/08/2024 9:38 AM [facility] MCV 88.6 80.0 - 96.0 FL 04/08/2024 9:38 AM [facility] MCH 27.7 25.3 - 30.9 PG 04/08/2024 9:38 AM [facility] MCHC 31.3 31.0 - 34.1 G/DL 04/08/2024 9:38 AM [facility] RDW 15.3(H) 12.4 - 15.1 % 04/08/2024 9:38 AM [facility] PLT 549(H) 151 - 353 x10'3/uL 04/08/2024 9:38 AM [facility] MPV 8.7(L) 9.6 - 12.0 FL 04/08/2024 9:38 AM [facility] RBC MORPHOLOGY NORMAL 04/08/2024 9:38 AM [facility] PLT MORPH. NORMAL 04/08/2024 9:38 AM [facility] WBC MORPHOLOGY NORMAL 04/08/2024 9:38 AM [facility] LYMPHOCYTES % 21.6 15.8 - 45.0 % 04/08/2024 9:38 AM [facility] NEUTROPHILS % 66.5 42.1 - 71.9 % 04/08/2024 9:38 AM [facility] MONOCYTES % 9.9 5.7 - 12.5 % 04/08/2024 9:38 AM [facility] EOSINOPHILS 0.4 0.0 - 5.6 % 04/08/2024 9:38 AM [facility] BASOPHILS 1.2 0.0 - 1.3 % 04/08/2024 9:38 AM [facility] ABS. NEUTROPHILS 3.24 1.40 - 6.00 x10'3/uL 04/08/2024 9:38 AM [facility] IMMATURE GRANS % 0.4 0.0 - 0.5 % 04/08/2024 9:38 AM [facility] ABS. LYMPHOCYTES 1.05 0.80 - 4.70 x10'3/uL 04/08/2024 9:38 AM STATE EDITOR [facility] 04/08/2024 9:16 AM STATE EDITOR Meredith Zurita NP LABORATORY Final Result Performing Organization Address City/[facility]/ZIP Co de Phone Number [facility] [address] [place] [address], [place] [phone] * (ABNORMAL) CA 15 3, SERUM (03/18/2024 10:24 AM STATE EDITOR) Only the most recent of2 resultswithin the time period is included. Pathologist [facility] [place] CA 15 3 S/P/B 48(H) <32 U/mL 03/21/2024 5:10 AM STATE EDITOR [employer] Comment: This test was performed using the Siemens chemiluminescent method. Values obtained from different assay methods cannot be used inter- changeably. CA 15-3 levels, regardless of value, should not be interpreted as absolute evidence of the presence or absence of disease. Test Performed by [employer] [facility][1], [address] [place] [address] Bonifacio Robledo M.D., Ph.D., Director of Laboratories , [place] [id number] 03/18/2024 10:2 4 AM STATE EDITOR Daniela Wilson MD LABORATORY Final Resul t Performing Organization Address City/[facility]/ZIP Co de Phone Number [facility] [address] [place], [place] , [place] [phone] * LDH, LACTATE DEHYDROGENASE (03/18/2024 10:24 AM STATE EDITOR) Only the most recent of2 resultswithin the time period is included. Pathologist [facility] [place] LDH 157 84 - 246 UNITS/L 03/18/2024 11:00 AM STATE EDITOR [facility] 03/18/2024 10:2 4 AM STATE EDITOR us Daniela Wilson MD LABORATORY Final Resul t Performing Organization Address [facility] Co de Phone Number [facility] [address] [place] [address], [place] [phone] * (ABNORMAL) CARCINOEMBRYONIC ANTIGEN (03/18/2024 10:24 AM STATE EDITOR) Only the most recent of2 resultswithin the time period is included. CEA 7.1(H) 0.0 - 3.0 NG/ML 03/18/2024 3:14 PM STATE EDITOR [facility] Comment: Test was performed using the Siemens method. Results obtained with other assay methods or kits cannot be used interchangeably with results obtained by the Siemens method. 03/18/2024 10:2 4 AM STATE EDITOR us Daniela Wilson MD LABORATORY Final Resul t Performing Organization Address [facility] Co de Phone Number [facility] [address] [place] [address], [place] [phone] * NM BONE SCAN WHOLE BODY WO SPECT (02/11/2024 11:46 AM STATE EDITOR) Anatomical Region Laterality Modality Bone Nuclear Medicine 02/11/2024 2:31 PM STATE EDITOR Impressions 02/11/2024 3:50 PM STATE EDITOR IMPRESSION: 1. Interval progression of osteoblastic metastases with increasing uptake throughout the thoracolumbar spine corresponding with progressive sclerotic lesions on recent CT. 2. Mild multifocal osteoarthritic degenerative uptake. The attending radiologist has reviewed the image(s) and agrees with the content of this report. Ordered By: MEREDITH ZURITA Interpreted By: Chico Cantrell MD, 02/11/2024 2:31 PM Narrative 02/11/2024 3:50 PM STATE EDITOR [facility] [address] [place] [address] EXAMINATION: BONE SCINTIGRAPHY (WHOLE-BODY) DATE OF STUDY: 02/11/2024 RADIOPHARMACEUTICAL: 25.1 mCi Tc-99m MDP i.v. HISTORY: Stage IV breast cancer with bone metastases. Assess treatment response after finishing 6 round of chemotherapy. FINDINGS: Delayed whole-body scintigrams were obtained. Prior nuclear medicine studies used for comparison: none Other radiographic comparisons: CT chest, abdomen, and pelvis 02/01/2024. There is increased uptake throughout the thoracolumbar spine, particularly involving the T10-L2 vertebral bodies consistent with osseous metastatic disease. This corresponds with the progressive sclerotic areas seen on prior CTs. There is mildly increased activity in the mid cervical spine on the lateral views which is likely secondary to differential soft tissue attenuation of the upper and lower cervical spine and artifactual. No sclerotic lesion at this location is seen in the included portions of the cervical spine on CT. There is mild osteoarthritic degenerative uptake involving the shoulders. There is normal renal clearance of radiotracer. Procedure Note Sandi Morocho MD - 02/11/2024 [facility] [address] [place] [address] EXAMINATION: BONE SCINTIGRAPHY (WHOLE-BODY) DATE OF STUDY: 02/11/2024 RADIOPHARMACEUTICAL: 25.1 mCi Tc-99m MDP i.v. HISTORY: Stage IV breast cancer with bone metastases. Assess treatmentresponse after finishing 6 round of chemotherapy. FINDINGS: Delayed whole-body scintigrams were obtained. Prior nuclear medicine studies used for comparison: none Other radiographic comparisons: CT chest, abdomen, and [id number]/01/2024. There is increased uptake throughout the thoracolumbar spine, particularlyinvolving the T10-L2 vertebral bodies consistent with osseous metastaticdisease. This corresponds with the progressive sclerotic areas seen onprior CTs. There is mildly increased activity in the mid cervical spine onthe lateral views which is likely secondary to differential soft tissueattenuation of the upper and lower cervical spine and artifactual. Nosclerotic lesion at this location is seen in the included portions of thecervical spine on CT. There is mild osteoarthritic degenerative uptakeinvolving the shoulders. There is normal renal clearance of radiotracer. IMPRESSION: 1. Interval progression of osteoblastic metastases with increasing uptakethroughout the thoracolumbar spine corresponding with progressivesclerotic lesions on recent CT. 2. Mild multifocal osteoarthritic degenerative uptake. The attending radiologist has reviewed the image(s) and agrees with thecontent of this report. Ordered By: MEREDITH ZURITA Interpreted By: Chico Cantrell MD, 02/11/2024 2:31 PM us Meredith Zurita [employer]SULTANT NUC MED Final Result * CT CHEST+ABD+PEL WO CON (02/01/2024 8:56 AM STATE EDITOR) Anatomical Region Laterality Modality Chest, Abdomen, Pelvis Computed Tomography 02/01/2024 2:23 PM STATE EDITOR Impressions 02/01/2024 2:49 PM STATE EDITOR IMPRESSION: 1. Overall disease progression as described. See text. 2. Otherwise, no acute intrathoracic, intra-abdominal or intrapelvic process identified. 3. Additional chronic/nonurgent findings as described. Ordered By: MEREDITH ZURITA Interpreted By: Favian Rosario MD, 02/01/2024 2:23 PM Narrative 02/01/2024 2:49 PM STATE EDITOR [facility] [address] [place] [address] Examination: CT of the chest, abdomen and pelvis without contrast. Exam time: 0853 hours. Clinical history: Restaging of metastatic breast cancer. Prior left mastectomy. Comparison: 08/23/2023. Technique: Spiral scanning was performed through the chest, abdomen and pelvis without contrast. Sagittal and coronal reconstructions were performed from the data set. Intravenous contrast was not administered per the order. A dose lowering technique was used for this procedure, which may include, but is not limited to, dose reduction techniques, automated exposure control, the use of iterative reconstruction and ALARA/Image Gently techniques. Findings: CT CHEST: Right subclavian port catheter remains in place with the tip terminating in the proximal SVC. Calcific coronary artery disease and atherosclerotic calcification of the aorta and arch vessels again evident. There is stable ectasia of the ascending aorta, without genna aneurysm. The heart and great vessels are otherwise unremarkable for the noncontrast technique. No hilar or mediastinal adenopathy is identified. No endobronchial abnormality is identified. Minimal left pleural effusion is present with associated compressive atelectasis. Allowing for respiratory motion, the left lung is otherwise essentially clear. There is a new small to moderate-sized right pleural effusion with associated compressive atelectasis. This obscures the previously evident pleural-based mass posteriorly in the lower lobe. Allowing for respiratory motion, the right lung is otherwise essentially clear. Changes of left mastectomy again evident. There are no findings to suggest local recurrence. Left axillary lymph nodes remain asymmetric compared to the right without genna lymphadenopathy, similar to previous. There are increasing sclerotic foci involving the T10, T11 and T12 vertebral levels and body of the sternum compatible with progressive metastasis. No lytic lesions are seen. CT ABDOMEN AND PELVIS: Previously referenced low-attenuation lesion in the left lobe of the liver has enlarged, currently measuring approximately 2.8 cm, compatible with disease progression. There are several new low-attenuation foci scattered throughout the liver measuring up to approximately 1.1 cm, compatible with progressive metastasis. Benign adenomatous hyperplasia of the adrenal glands has been chronically present. The liver, spleen, gallbladder, pancreas, adrenals and kidneys are otherwise unremarkable for the noncontrast technique. The urinary bladder is nearly empty. The uterus appears unremarkable. A normal-appearing appendix cannot be clearly identified however, there are no secondary findings to suggest appendicitis. There is a moderate to large amount of stool in the colon. There is no ascites, lymphadenopathy or bowel distention. The caliber of the abdominal aorta is normal. Anatomic variant retroaortic left renal vein is noted. There are progressive sclerotic foci, particularly involving L1 and L2, compatible with metastases. Endplate bowing deformities at L2 and L3 appear stable on sagittal reconstruction. No lytic lesions are seen. Procedure Note Favian Rosario MD - 02/01/2024 [facility] [address] [place] [address] Examination: CT of the chest, abdomen and pelvis without contrast. Exam time: 0853 hours. Clinical history: Restaging of metastatic breast cancer. Prior leftmastectomy. Comparison: 08/23/2023. Technique: Spiral scanning was performed through the chest, abdomen andpelvis without contrast. Sagittal and coronal reconstructions wereperformed from the data set. Intravenous contrast was not administered perthe order. A dose lowering technique was used for this procedure, whichmay include, but is not limited to, dose reduction techniques, automatedexposure control, the use of iterative reconstruction and ALARA/ImageGently techniques. Findings: CT CHEST: Right subclavian port catheter remains in place with the tipterminating in the proximal SVC. Calcific coronary artery disease andatherosclerotic calcification of the aorta and arch vessels again evident.There is stable ectasia of the ascending aorta, without genna aneurysm.The heart and great vessels are otherwise unremarkable for the noncontrasttechnique. No hilar or mediastinal adenopathy is identified. Noendobronchial abnormality is identified. Minimal left pleural effusion ispresent with associated compressive atelectasis. Allowing for respiratorymotion, the left lung is otherwise essentially clear. There is a new smallto moderate-sized right pleural effusion with associated compressiveatelectasis. This obscures the previously evident pleural-based massposteriorly in the lower lobe. Allowing for respiratory motion, the rightlung is otherwise essentially clear. Changes of left mastectomy againevident. There are no findings to suggest local recurrence. Left axillarylymph nodes remain asymmetric compared to the right without franklymphadenopathy, similar to previous. There are increasing sclerotic fociinvolving the T10, T11 and T12 vertebral levels and body of the sternumcompatible with progressive metastasis. No lytic lesions are seen. CT ABDOMEN AND PELVIS: Previously referenced low-attenuation lesion in theleft lobe of the liver has enlarged, currently measuring approximately 2.8cm, compatible with disease progression. There are several newlow-attenuation foci scattered throughout the liver measuring up toapproximately 1.1 cm, compatible with progressive metastasis. Benignadenomatous hyperplasia of the adrenal glands has been chronicallypresent. The liver, spleen, gallbladder, pancreas, adrenals and kidneysare otherwise unremarkable for the noncontrast technique. The urinarybladder is nearly empty. The uterus appears unremarkable. Anormal-appearing appendix cannot be clearly identified however, there areno secondary findings to suggest appendicitis. There is a moderate tolarge amount of stool in the colon. There is no ascites, lymphadenopathyor bowel distention. The caliber of the abdominal aorta is normal.Anatomic variant retroaortic left renal vein is noted. There areprogressive sclerotic foci, particularly involving L1 and L2, compatiblewith metastases. Endplate bowing deformities at L2 and L3 appear stable onsagittal reconstruction. No lytic lesions are seen. IMPRESSION: 1. Overall disease progression as described. See text. 2. Otherwise, no acute intrathoracic, intra-abdominal or intrapelvicprocess identified. 3. Additional chronic/nonurgent findings as described. Ordered By: MEREDITH ZURITA Interpreted By: Favian Rosario MD, 02/01/2024 2:23 PM Meredith Zurita OUTBOUND SALES CONSULTANT CT Final Result * USE ECHOCARDIOGRAM (01/22/2024 9:18 AM STATE EDITOR) Anatomical Region Laterality Modality Cardiac Ultrasound 01/22/2024 8:49 AM STATE EDITOR Narrative 01/23/2024 9:31 AM STATE EDITOR PÉREZ PEREZ Pat.Name: Sammi Cee.ID: [id number] .Date: 01/22/2024 Refer.MD: Sheba, [facility] Exam Time: 8:49:00 AM Study Type:OUTREACH Height: 62 in Weight: 114 lb BSA: 1.51 m2 Age: 9 1950,73Y Sex: F Sonogrphr: Adam Pat. Stat.:Outpatient Reason for Study:High risk medication use Procedures: Study performed at [place], [place] and interpreted by [facility]. 2D, M-mode, Doppler, Color Flow ++++++++++++++++++++++++++++++++++++ SUMMARY: ++++++++++++++++++++++++++++++++++++ The left ventricular size is normal. There is no left ventricular hypertrophy. Estimated left ventricular ejection fraction is 55-60%. Left ventricular diastolic function is not reliably assessed. The right ventricle size is normal. The right ventricular function is normal. Left atrial size is normal. The right atrial size is normal. Unable to reliably quantitate pulmonary systolic pressure. There is trace tricuspid regurgitation. ++++++++++++++++++++++++++++++++++++ FINDINGS: ++++++++++++++++++++++++++++++++++++ LV: The left ventricular size is normal. The left ventricular systolic function is normal. Estimated left ventricular ejection fraction is 55-60%. Left ventricular diastolic function is not reliably assessed. RV: The right ventricle size is normal. The right ventricular function is normal. LA: Left atrial size is normal. RA: The right atrial size is normal. NICK: No evidence of pericardial effusion. AO: Aorta is normal. PA: Unable to reliably quantitate pulmonary systolic pressure. SVn: Inferior vena cava is normal. AV: The aortic valve is trileaflet. Mild calcification of aortic valve leaflets. MV: Structurally normal mitral valve. Calcified posterior mitral annulus. PV: Pulmonic valve not well visualized. TV: The tricuspid valve appears structurally normal. There is trace tricuspid regurgitation. <Electronic Signature> 01/23/2024 09:31 AM Katia Turcios M.D. Procedure Note Katia Turcios MD - 01/23/2024 PÉREZ PEREZ Pat.Name: Coleman Sammi j Pat.ID: [id number] .Date: 01/22/2024 Refer.MD: Sheba [facility] Exam Time: 8:49:00 AM Study Type:[facility] Height: 62 in Weight: 114 lb BSA: 1.51 m2 Age: 9 1950,73Y Sex: F Sonogrphr: Adam Pat. Stat.:Outpatient Reason for Study:High risk medication use Procedures: Study performed at [place], [place] and interpreted by [facility]. 2D, M-mode, Doppler, Color Flow ++++++++++++++++++++++++++++++++++++ SUMMARY: ++++++++++++++++++++++++++++++++++++ The left ventricular size is normal. There is no left ventricular hypertrophy. Estimated left ventricular ejection fraction is 55-60%. Left ventricular diastolic function is not reliably assessed. The right ventricle size is normal. The right ventricular function is normal. Left atrial size is normal. The right atrial size is normal. Unable to reliably quantitate pulmonary systolic pressure. There is trace tricuspid regurgitation. ++++++++++++++++++++++++++++++++++++ FINDINGS: ++++++++++++++++++++++++++++++++++++ LV: The left ventricular size is normal. The left ventricular systolic function is normal. Estimated left ventricular ejection fraction is 55-60%. Left ventricular diastolic function is not reliably assessed. RV: The right ventricle size is normal. The right ventricular function is normal. LA: Left atrial size is normal. RA: The right atrial size is normal. NICK: No evidence of pericardial effusion. AO: Aorta is normal. PA: Unable to reliably quantitate pulmonary systolic pressure. SVn: Inferior vena cava is normal. AV: The aortic valve is trileaflet. Mild calcification of aortic valve leaflets. MV: Structurally normal mitral valve. Calcified posterior mitral annulus. PV: Pulmonic valve not well visualized. TV: The tricuspid valve appears structurally normal. There is trace tricuspid regurgitation. <Electronic Signature> 01/23/2024 09:31 AM Katia Turcios M.D. Meredith Zurita NP ECHO Final Result * BONE DENSITY/DEXA (01/19/2023 10:08 AM STATE EDITOR) Anatomical Region Laterality Modality Bone Bone Density 01/20/2023 6:20 AM STATE EDITOR Impressions 01/20/2023 6:30 AM STATE EDITOR IMPRESSION: 1. Osteoporosis with progression of osteoporosis in the left femoral neck since the prior exam of 12/30/2020. Fracture risk is increased and is high. Treatment is advised. 2. Mild to aggressive therapy are available in the form of hormonal replacement therapy (HRT), diphosphonates, calcitonin, and SERMs. Additionally all patients should ensure an adequate intake of dietary calcium (1200 mg per day) and vitamin D (400-800 International Units daily). These findings satisfy the criteria established by the ISCD for the diagnoses of osteoporosis, osteopenia, and normal: APPENDIX Osteopenia (low bone mass): T-score of minus 1.0 to minus 2.4 standard deviation below the mean for Young Adult Reference Population. Osteoporosis: T-score of minus 2.5 or lower. Referred By: MEREDITH ZURITA Interpreted By: Dorota Canas MD, 01/20/2023 6:20 AM Narrative 01/20/2023 6:30 AM STATE EDITOR [facility] [address] [place] [address] EXAM: Bone DENSITY DEXA EXAM LUMBAR SPINE AND BILATERAL HIPS CLINICAL INDICATION: 72-year-old postmenopausal female with osteoporosis, follow up exam. COMPARISON: 12/30/2020.. AP SPINE RESULTS REGION: L1-L4 BMD: 0.834 gm/square cm T-SCORE: -1.9 Standard deviations with the mean Young Adult Reference Population. There has been interval improvement in osteopenia in the lumbar spine since 12/30/2020, with BMD of lumbar spine on prior exam of 0.799 gm/square cm, with T-score of -2.3. LEFT HIP RESULTS REGION: Left femoral neck. BMD: 0.425 gm/square cm T-SCORE: -3.8 Standard deviations with the mean Young Adult Reference Population. There has been interval progression of osteoporosis in the left femoral neck since 12/30/2020, with BMD of left femoral neck on prior exam of 0.500 gm/square cm, with T-score of -3.1. It is noted that there has been no significant change in total mean bone density in the proximal left femur when compared to the prior study of 12/30/2020, with a total mean bone density of the left femoral neck on the current study is 0.683 gm/square cm, with T score -2.1; on the prior study, the total mean bone density of the proximal left femur was 0.695 gm/square cm with T score -2.0. RIGHT HIP RESULTS REGION: Right femoral neck. BMD: 0.440 gm/square cm T-SCORE: -3.7 Standard deviations with the mean Young Adult Reference Population. The right femoral neck was not evaluated on the prior exam. TOTAL MEAN BONE DENSITY BILATERAL HIP RESULTS REGION: Total mean bone density bilateral hips. BMD: 0.582 gm/square cm T-SCORE: -3.0 Standard deviations with the mean Young Adult Reference Population. Procedure Note Dorota Canas MD - 12/15/2023 [facility] [address] [place] [address] EXAM: Bone DENSITY DEXA EXAM LUMBAR SPINE AND BILATERAL HIPS CLINICAL INDICATION: 72-year-old postmenopausal female with osteoporosis,follow up exam. COMPARISON: 12/30/2020.. AP SPINE RESULTS REGION: L1-L4 BMD: 0.834 gm/square cm T-SCORE: -1.9 Standard deviations with the mean Young Adult ReferencePopulation. There has been interval improvement in osteopenia in the lumbar spinesince 12/30/2020, with BMD of lumbar spine on prior exam of 0.799gm/square cm, with T- score of -2.3. LEFT HIP RESULTS REGION: Left femoral neck. BMD: 0.425 gm/square cm T-SCORE: -3.8 Standard deviations with the mean Young Adult ReferencePopulation. There has been interval progression of osteoporosis in the left femoralneck since 12/30/2020, with BMD of left femoral neck on prior exam of0.500 gm/square cm, with T-score of -3.1. It is noted that there has beenno significant change in total mean bone density in the proximal leftfemur when compared to the prior study of 12/30/2020, with a total meanbone density of the left femoral neck on the current study is 0.683gm/square cm, with T score -2.1; on the prior study, the total mean bonedensity of the proximal left femur was 0.695 gm/square cm with T score-2.0. RIGHT HIP RESULTS REGION: Right femoral neck. BMD: 0.440 gm/square cm T-SCORE: -3.7 Standard deviations with the mean Young Adult ReferencePopulation. The right femoral neck was not evaluated on the prior exam. TOTAL MEAN BONE DENSITY BILATERAL HIP RESULTS REGION: Total mean bone density bilateral hips. BMD: 0.582 gm/square cm T-SCORE: -3.0 Standard deviations with the mean Young Adult ReferencePopulation. IMPRESSION: 1. Osteoporosis with progression of osteoporosis in the left femoral necksince the prior exam of 12/30/2020. Fracture risk is increased and ishigh. Treatment is advised. 2. Mild to aggressive therapy are available in the form of hormonalreplacement therapy (HRT), diphosphonates, calcitonin, and SERMs.Additionally all patients should ensure an adequate intake of dietarycalcium (1200 mg per day) and vitamin D (400-800 International Unitsdaily). These findings satisfy the criteria established by the ISCD for thediagnoses of osteoporosis, osteopenia, and normal: APPENDIX Osteopenia (low bone mass): T-score of minus 1.0 to minus 2.4 standarddeviation below the mean for Young Adult Reference Population. Osteoporosis: T-score of minus 2.5 or lower. Referred By: MEREDITH ZURITA Interpreted By: Dorota Canas MD, 01/20/2023 6:20 AM Meredith Zurita NP DEXA Final Result * MG DIAG ADD VIEW W [facility] RT (07/12/2022 10:29 AM CDT) Anatomical Region Laterality Modality Breast Right Mammography, Rad iographic Imaging 07/12/2022 9:36 AM CDT Narrative 07/12/2022 11:11 AM CDT IMAGING STUDIES: MG DIAG ADD VIEW W [facility] RT DATE: 06/08/2022 12:00 AM HISTORY: Inflammatory carcinoma of left breast (CMS/HCC) . COMPARISON: 06/12/2017. 02/03/2015 TISSUE TYPE: The breast tissue is heterogeneously dense, which may obscure small masses. DISCUSSION: 1. Diagnostic right breast mammogram with computer detection with 2-D and 3-D imaging and kaiser synthesis.. 2. Vague opacity within the 9:00 position of the right breast. 3 to 4 cm from the nipple. Best seen on the CC views. Not well delineated on the ML or MLO views.. Ultrasound at this site demonstrates no gross abnormality. Findings most likely due to parenchymal overlap. 3. No malignant microcalcifications. Benign calcifications.. 4. Evaluation of the visualized lower axilla demonstrates no gross lymphadenopathy. The lymph nodes on recent CT of 05/12/2022 were located high in the axilla. MediPort catheter overlies the right axilla IMPRESSION: 1. No mammographic evidence of malignancy. 2. Assessment: ACR BI-RADS 2 - BENIGN FINDING(S) 3 .Routine Screening Right MQSA BI-RADS Categories: Category 0 - needs additional imaging evaluation. Category 1 - negative. Category 2 - benign findings. Category 3 - probably benign findings, but short interval follow-up is recommended. Category 4 - suspicious abnormality and biopsy should be considered though the lesion may well be benign. Category 5 - highly suggestive of malignancy and appropriate action should be taken. A) A negative report should not delay a biopsy if a dominant or clinically suspicious mass is present. B) Adenosis and dense breasts may obscure an underlying neoplasm. C) Study interpreted with computer aided detection. Ordered By: DANIELA WILSON Interpreted By: Piyush Prasad, 07/12/2022 9:36 AM us Daniela Wilson MD MAMMO Final Resul t from Last 3 Months or Most Recently Relevant to Health Maintenance Insurance [employer] Member Subscriber Plan / Payer (Ef fective 2022-Present) Name:Sammi Cee Relation to Subscriber:Self Name:Sammi Cee Payer ID:Not on file Group ID:[id number] Type:Not on file Address: [address] [address] [place] [address] Care Teams Bell Staff Relationship Specialty Start Date End Date Merari Eller MD [address] [place] [address] PCP - General FAMILY PRACTICE 06/01/21 Daniela Wilson MD Medical Oncologist HEMATOLOGY/ONCOLOGY 09/30/18 Talon Hunter MD [address] [place] [address] Consulting Physician RADIATION ONCOLOGY 03/28/24
--- OUTSIDE RECORDS SUMMARY | 2024-04-18 09:45 | XMS_ITS | Clinical Summary ---
Author Organization [facility] Address [address] [place] [address] Care Team Providers Care Lard Maker Name Role Phone Unavailable Primary Care Provider Unavailabl e Source Comments [facility] Behavio,non-owned Affiliates and Associated Physician Practices is amultiple site organization consisting of ambulatory clinics and hospital sitesin [place], [place], [place] and [place]. This disclosure is being madepursuant to the Care Everywhere program and may not contain all information available regarding this patient. Last updated 17.[facility] Behavio Social History Tobacco Use Types Packs/Day Years Used Date Smoking Tobacco: Never Assessed Sex and Gender Information Value Date Recorded Sex Assigned at Not on file Gender Identity Not on file Sexual Orientation Not on file Plan of Treatment Health Maintenance Due Date Last Done Comments BONE DENSITY TESTING 1950 COLOGUARD (AGES 45-75) - COL ON CA SCREENING 1950 COLON MONITORING 1950 COLONOSCOPY - COLON CA SCREENING 1950 CT COLONOGRAPHY - COLON CA SCREENING 1950 Colorectal Cancer Screening 1950 FIT - COLON CA SCREENING 1950 FLEX SIG - COLON CA SCREENING 1950 LIPID TESTING 1950 MAMMOGRAM 1950 HEPATITIS C SCREENING 11/19/1968 DTAP/TDAP/TD VACCINES (1 - Tdap) 1969 PNEUMOCOCCAL VACCINE 50+ (1 of 1 - PCV) 2000 ZOSTER VACCINE (1 of 2) 2000 COVID-19 VACCINE ( - 2023-2 5 season) 2023 INFLUENZA VACCINE (#1) 2023 DEPRESSION SCREENING 03/05/2024 Respiratory Syncytial Virus (RSV) Vaccine Pt: or over 60 yrs (1 - 1-dose 75+ series) 2025 HEPATITIS B VACCINE Aged Out No longe r eligible based on patient's age to complete this topic HIB VACCINE Aged Out No longer eligi ble based on patient's age to complete this topic HPV VACCINE Aged Out No longer eligi ble based on patient's age to complete this topic MENINGOCOCCAL (Group B) VACCINE Aged Out No longer eligible based on patient's age to complete this topic MENINGOCOCCAL VACCINE Aged Out No nikolas macy eligible based on patient's age to complete this topic
--- OUTSIDE RECORDS SUMMARY | 2024-04-18 09:45 | XMS_ITS | Encounter Summary ---
Author Organization [facility] Address [address] [place] [address] Phone Care Team Providers Care Records Administrator Name Role Phone Aftab Bauer MD Primary Care Provider [phone] Tito Wilson MD Unavailable [phone] Provider, Not On File Primary Care Provider Unav ailable Encounter Details Date Type Department Care Team (Late st Contact Info) Description 12/24/2020 Telephone [facility] [address] [place] [address] Tito Wilson MD [address] [place] [address] Social History Tobacco Use Types Packs/Day Years Used Date Smoking Tobacco: Every Day Cigarettes 1 53.1 Started: 03/05/1971 Smokeless Tobacco: Never Alcohol Use Standard Drinks/Week Comments Yes 4 (1 standard drink = 0.6 oz pur e alcohol) PHQ-2 Answer Date Recorded Total Score - Questions 1-9 0 12/03 Comments Unknown Sex and Gender Information Value Date Recorded Sex Assigned at Not on file Legal Sex Female 10:58 AM HAND ROUTER OPERATOR Gender Identity Not on file Sexual Orientation Not on file COVID-19 Exposure Response Date Recorded In the last month, have you been in contact with someone who was confirmed or suspected to have Coronavirus / COVID-19? No / Unsure 12/16/2020 1:31 PM CDT documented as of this encounter Miscellaneous Notes * Telephone Encounter - Laury Duron - 12/24/2020 4:00 PM CDT PATIENT IS SCHEDULED FOR HER DEXA IN [place] 12/30/20 AT 1PM. documented in this encounter Plan of Treatment Upcoming Encounters Date Type Department Care Team (Late st Contact Info) Description 04/24/2024 10:15 AM HAND ROUTER OPERATOR Office Visit [facility] [address] [facility] [address] [place] [address] Meredith Colon, BLAST FURNACE BLOWER, CROWN ASSEMBLY MACHINE SET UP MECHANIC [address] [place] [address] 05/01/2024 10:30 AM HAND ROUTER OPERATOR Clinical Support [facility] [id number] [address] Nurse, [place] documented as of this encounter Visit Diagnoses Not on filedocumented in this encounter Additional Health Concerns Assessment Noted Time PHQ-9 Depression Total Score: 0 12/17/19 1:37 PM CDT documented as of this encounter Care Teams Records Administrator Relationship Specialty Start Date End Date Aftab Bauer MD [address] [place] [address] PCP - General Family Medicine 03/04/15 06/18/22 Provider, Not On File [place] PCP - General 06/29/22 Tito Wilson MD [address] [place] [id number] Consulting Physician Oncology 08/17/16 documented as of this encounter
--- OUTSIDE RECORDS SUMMARY | 2024-04-18 09:45 | XMS_ITS | Patient Health Summary ---
Author Organization [facility] Address [address] [place] [address] Care Team Providers Care Local Delivery Driver Name Role Phone Unavailable Primary Care Provider Unavailabl e Note from [facility],non-owned Affiliates and Associated Physician Practices is amultiple site organization consisting of ambulatory clinics and hospital sitesin [place], [place], [place] and [place]. This disclosure is being madepursuant to the Care Everywhere program and may not contain all information available regarding this patient. Last updated 17.[facility] Social History Tobacco Use Types Packs/Day Years Used Date Smoking Tobacco: Never Assessed Sex and Gender Information Value Date Recorded Sex Assigned at Not on file Gender Identity Not on file Sexual Orientation Not on file Procedures * MRI BREAST BILAT WWO CONTRAST(Performed 02/18/2015) * CREATININE BLOOD - POCT (IP) [facility](Performed 02/18/2015) Results * MRI BREAST BILAT WWO CONTRAST (02/18/2015 8:39 PM TRASHMAN) Anatomical Region Laterality Modality Breast Bilateral Other Impressions 02/22/2015 1:46 PM TRASHMAN IMPRESSION: BI-RADS category 6, known malignancy. Large calcified mass and multiple satellite lesions occupying a large portion of the lateral left breast consistent with multifocal carcinoma. There appears to be ulceration and invasion of the overlying skin surface. The skin of the entire left breast demonstrates enhancement which can be seen with inflammatory breast cancer or direct invasion. Multiple large and irregular left axillary lymph nodes which are also noted beneath the pectoralis minor muscle. Integrity of the left chest wall by these lymph irvin masses is difficult to assess. Possible left supraclavicular lymph node. Enhancing lesions within the sternum, possibly due to metastatic disease. No suspicious findings for malignancy within the right breast. RECOMMENDATION: Known malignancy within the left breast, appropriate action should be taken. Incomplete evaluation of large left axillary lymph nodes (see above), left supraclavicular region, and possible metastatic lesions within the sternum. Further evaluation with CT and/or PET CT could be used if indicated. This report was electronically signed by ASHWIN GONZALEZ M.D. on 02/22/2015 1:46 PM . Narrative 02/22/2015 1:46 PM TRASHMAN MRI of the breasts with and without contrast COMPARISON: Diagnostic mammography and ultrasound performed 02/03/2015 at an outside institution. HISTORY: Left breast cancer TECHNIQUE: Multiplanar multisequence MR imaging of both breasts before and following the administration of intravenous gadolinium contrast. Dynamic phase imaging was performed in the axial plane. Exam processed by and interpreted on a DocDoc fine dining server including 3-D volume rendering, subtraction image processing and contrast kinetic analysis. 9 cc of Gadovist intravenous. GFR: Greater than 60. She is postmenopausal. FINDINGS: Degree of postcontrast parenchymal enhancement: Mild. Amount of fibroglandular tissue: Scattered fibroglandular tissue. RIGHT: No suspicious enhancing mass or non-mass enhancement is seen. Right axillary lymph nodes are not enlarged. LEFT: Centered in the outer left breast, around 3:00, is an enhancing irregular mass measuring 6.6 x 4.0 x 5.5 cm in size. Calcification and areas of necrosis are seen within this mass. This mass appears to extend to the overlying skin surface where there is likely a large ulceration. In addition, more anteriorly, skin is retracted and multiple enhancing nodules are noted within the skin surface. Multiple satellite nodules are also seen within the breast. For example, a 1.1 cm irregular mass is located in the lower outer left breast, 1 cm from the dominant mass. A 1.1 cm irregular mass is also noted in the upper outer left breast, 5 mm from the dominant mass. The skin of the entire left breast appears mildly thickened and edematous, but also demonstrates enhancement. This can be seen with stage IV breast cancer with invasion of the skin, as well as inflammatory breast cancer. Innumerable irregular large left axillary lymph nodes are noted measuring up to 4.5 x 3 cm in size. Many of the enlarged lymph nodes are also not entirely imaged due to their position posterior to the pectoralis minor muscle and deep to it. Integrity of the left chest wall is therefore difficult to assess. This could be further assessed with chest CT or PET CT as needed. Although this region is not well imaged, there is suggestion of a left subclavicular lymph node, which could also be assessed with CT if needed. Areas of focal enhancement are seen within the sternum near the sternomanubrial junction, and metastatic disease is not excluded. Bone scan or PET CT could be used for further evaluation. Procedure Note Dipika Gonzalez MD - 06/02/2017 MRI of the breasts with and without contrast COMPARISON: Diagnostic mammography and ultrasound performed 02/03/2015 atan outside institution. HISTORY: Left breast cancer TECHNIQUE: Multiplanar multisequence MR imaging of both breasts before and followingthe administration of intravenous gadolinium contrast. Dynamic phaseimaging was performed in the axial plane. Exam processed by andinterpreted on a Doc[employer] fine dining server including 3-D volume rendering, subtraction image processing and contrast kineticanalysis. 9 cc of Gadovist intravenous. GFR: Greater than 60. She ispostmenopausal. FINDINGS: Degree of postcontrast parenchymal enhancement: Mild. Amount of fibroglandular tissue: Scattered fibroglandular tissue. RIGHT: No suspicious enhancing mass or non-mass enhancement is seen. Rightaxillary lymph nodes are not enlarged. LEFT: Centered in the outer left breast, around 3:00, is an enhancing irregularmass measuring 6.6 x 4.0 x 5.5 cm in size. Calcification and areas ofnecrosis are seen within this mass. This mass appears to extend to theoverlying skin surface where there is likely a large ulceration. In addition, more anteriorly, skin is retractedand multiple enhancing nodules are noted within the skin surface. Multiplesatellite nodules are also seen within the breast. For example, a 1.1 cmirregular mass is located in the lower outer left breast, 1 cm from the dominant mass. A 1.1 cmirregular mass is also noted in the upper outer left breast, 5 mm from thedominant mass. The skin of the entire left breast appears mildly thickenedand edematous, but also demonstrates enhancement. This can be seen with stage IV breast cancer with invasion ofthe skin, as well as inflammatory breast cancer. Innumerable irregular large left axillary lymph nodes are noted measuringup to 4.5 x 3 cm in size. Many of the enlarged lymph nodes are also notentirely imaged due to their position posterior to the pectoralis minormuscle and deep to it. Integrity of the left chest wall is therefore difficult to assess. This could befurther assessed with chest CT or PET CT as needed. Although this regionis not well imaged, there is suggestion of a left subclavicular lymphnode, which could also be assessed with CT if needed. Areas of focal enhancement are seen within the sternum near thesternomanubrial junction, and metastatic disease is not excluded. Bonescan or PET CT could be used for further evaluation. IMPRESSION IMPRESSION: BI-RADS category 6, known malignancy. Large calcified mass and multiple satellite lesions occupying a largeportion of the lateral left breast consistent with multifocal carcinoma.There appears to be ulceration and invasion of the overlying skin surface.The skin of the entire left breast demonstrates enhancement which can be seen with inflammatory breast canceror direct invasion. Multiple large and irregular left axillary lymph nodes which are alsonoted beneath the pectoralis minor muscle. Integrity of the left chestwall by these lymph irvin masses is difficult to assess. Possible left supraclavicular lymph node. Enhancing lesions within the sternum, possibly due to metastaticdisease. No suspicious findings for malignancy within the right breast. RECOMMENDATION: Known malignancy within the left breast, appropriate action should betaken. Incomplete evaluation of large left axillary lymph nodes (see above), leftsupraclavicular region, and possible metastatic lesions within thesternum. Further evaluation with CT and/or PET CT could be used ifindicated. This report was electronically signed by ASHWIN GONZAELZ M.D. on02/22/2015 1:46 PM . Historical Provider MR ORDERABLES * CREATININE BLOOD - POCT (IP) [facility] (02/18/2015) Creatinine POCT 0.87 0.3 - 1.3 mg/dL [facility] eGFR POCT 60 60 ml/min [facility] 02/18/2015 Dipika Gonzalez MD LAB - POINT OF CA RE ORDERABLES [facility]
--- OUTSIDE RECORDS SUMMARY | 2024-04-18 09:45 | XMS_ITS ---
Author Organization [facility] Address [address], [facility] [address] [place] [address] Phone Care Team Providers Care Radiology Manager Name Role Phone Tito Wilson MD Unavailable [phone] Provider, Not On File Primary Care Provider Unav ailable Active Problems Problem Noted Date Diagnosed Date HTN (hypertension) 01/17/2024 Memory changes 12/20/2017 Elevated liver enzymes 08/17/2016 Hypercalcemia 08/17/2016 Deep vein thrombosis (DVT) o f femoral vein of right lower extremity 04/08/2015 Malignant neoplasm metastatic to bone 03/04/2015 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 Current Treatment and Therapy Plans BREAST - ORAL CAPECITABINE - [facility] (infusion to dispense)* Plan Start Date: 03/20/2024 Plan Provider:Tito Wilson MD Linked Problems Inflammatory carcinoma of le ft breast (HCC) Treatment Medications Current Day (Day 1 , Cycle 2 - Planned for 04/17/2024) Next Day (Day 1, Cycle 3 - Planned for 05/08/2024) capecitabine (XELODA) capecitabine (XELO DA) tablet 1,000 mgcapecitabine (XELODA) tablet 300 mg capecitabine (XELODA) tablet 1,000 mgcapecitabine (XELODA) tablet 300 mg SUPPORT - ZOMETA - [facility]* Plan Start Date:12/26/2023 Plan Provider:Alex Claudio MD Linked Problems Inflammatory carcinoma of le ft breast (HCC)Malignant neoplasm metastatic to bone (HCC) Treatment Medications Current Day (Day 1 , Cycle 3 - Planned for 04/17/2024) Next Day (Day 1, Cycle 4 - Planned for 05/15/2024) No medications scheduled. No medications schedul ed. No medications scheduled. Past Treatment and Therapy Plans ONCOLOGY SUPPORTIVE CARE Plan Name Start Date Discontinue Date Treatment Medications Discontinue Reason Plan Provider Cycles SUPPORT - DENOSUMAB (X-GEVA) - [facility] 08/25/2015 06/07/2021 No medications scheduled. Plan Clean Up Sofie Patel MD 24 of 24 cycles started ONCOLOGY TREATMENT Plan Name Start Date Discontinue Date Treatment Medications Discontinue Reason Plan Provider Cycles [facility]: ENHERTU (FAM-TRASTUZUM AB DERUXTECAN-NXK I) - Breast 4 03/20/2024 fam-trastuzumab deruxtecan-nxki (ENHERTU) infusion Progression Tito Wilson MD 8 of 10 cycles started BREAST - FULVESTRANT - [facility] 07/05/2016 10/19/2023 No medications scheduled. Therapy Complete Tito Wilson MD 92 (93 of 93 cycles) started BREAST - TAXOL WEEKLY - POST AC - [facility] 6 11/01/2015 PACLitaxel (TAXOL) chemo infusion Therapy Complete Sofie Patel MD 3 of 3 cycles started BREAST - CA STANDARD - [facility] 02/25/20 15 05/04/2015 cyclophosphamide with mesna (CYTOXAN) chemo infusion using solrDOXOrubicin (ADRIAMYCIN) Therapy Complete Sofie Patel MD 4 of 4 cycles started ORAL CHEMO TREATMENT Plan Name Start Date Discontinue Date Treatment Medications Discontinue Reason Plan Provider Cycles BREAST - PALBOCICLIB (IBRANCE) 12/20/19 18 04/29/2020 Palbociclib Caps Plan Clean Up Tito Wilson MD 2 of 2 cycles completed Lifetime Dose Tracking * Chemical Lifetime Dose Automatic Entry Manual Entr y Doxorubicin Cyclophosphamide Resolved Problems Problem Noted Date Diagnosed Date Resolved Date Constipation 07/08/2015 10/07/2015 Hypokalemia 04/08/2015 06/03/2015 Constipation 03/04/2015 06/17/2015 Nausea 03/04/2015 06/17/2015 Right leg swelling 02/18/2015 6
--- OUTSIDE RECORDS SUMMARY | 2024-04-18 09:45 | XMS_ITS | Encounter Summary ---
Author Organization [facility] Address [facility] [place] [address] Care Team Providers Care Casserole Preparer Name Role Phone Tito Wilson MD Unavailable [phone] Merari Eller MD Primary Care Provider Talon Hunter MD Unavailable Reason for Visit * Reason Onset Date Comments Preprocedure Call 09/25/2023 Encounter Details Date Type Department Care Team (Late st Contact Info) Description 09/25/2023 Pre-Procedure Call [facility] Interventional Radiology [place] [address] Clyde Singh MD [address] [place] [address] [phone] Preprocedure Call Social History Tobacco Use Types Packs/Day Years Used Date Smoking Tobacco: Every Day Cigarettes 1 46 Smokeless Tobacco: Never Alcohol Use Standard Drinks/Week Comments No 0 [...] Sex Assigned at Female 03/18/2024 10:11 AM COLLECTIONS ASSOCIATE Legal Sex Female 8:28 PM CDT Gender Identity Not on file Sexual Orientation Not on file documented as of this encounter Plan of Treatment Not on file documented as of this encounter Visit Diagnoses Not on filedocumented in this encounter Care Teams Casserole Preparer Relationship Specialty Start Date End Date Merari Eller MD [address] [place] [address] PCP - General FAMILY PRACTICE 06/01/21 Tito Wilson MD Medical Oncologist HEMATOLOGY/ONCOLOGY 09/30/18 Talon Hunter MD [address] [place] [address] Consulting Physician RADIATION ONCOLOGY 03/28/24 documented as of this encounter
--- OUTSIDE RECORDS SUMMARY | 2024-04-18 09:45 | XMS_ITS | Encounter Summary ---
Author Organization [facility] Address [address] [place] [address] Phone Care Team Providers Care Bag Machine Tender Name Role Phone Tito Wilson MD Unavailable [phone] Provider, Not On File Primary Care Provider Unav ailable Reason for Visit * Reason Onset Date Comments Medication Refill 03/20/2024 Encounter Details Date Type Department Care Team (Late st Contact Info) Description 03/20/2024 Refill [facility] [address] [address] Tito Wilson MD [address] [place] [address] Medication Refill Social History Tobacco Use Types Packs/Day Years Used Date Smoking Tobacco: Former Cigarettes 1 53.1 S tarted: 03/05/1971 Smokeless Tobacco: Never Alcohol Use Standard Drinks/Week Comments Yes 4 (1 standard drink = 0.6 oz pur e alcohol) PHQ-2 Answer Date Recorded Total Score - Questions 1-9 0 06/0 04/2021 Comments Unknown Sex and Gender Information Value Date Recorded Sex Assigned at Not on file Legal Sex Female 10:58 AM ANIMAL HOSPITAL OFFICE SUPERVISOR Gender Identity Not on file Sexual Orientation Not on file documented as of this encounter Functional Status * Question Answer Date of Assessment Author Little interest or pleasure in doing things Not at all 03/20/2024 9:29 AM ANIMAL HOSPITAL OFFICE SUPERVISOR Theresa You CMA Feeling down, depressed, or hopeless Not at all 03/20/2024 9:29 AM ANIMAL HOSPITAL OFFICE SUPERVISOR Theresa You CMA * Over the past 2 weeks, how often have you been bothered by any of the following problems? Question Answer Date of Assessment Author Patient Health Questionnaire -2 Score 0 03/20/2024 9:29 AM ANIMAL HOSPITAL OFFICE SUPERVISOR Theresa You CMA documented as of this encounter Plan of Treatment Upcoming Encounters Date Type Department Care Team (Late st Contact Info) Description 04/24/2024 10:15 AM ANIMAL HOSPITAL OFFICE SUPERVISOR Office Visit [facility] [address] [address] Meredith Colon, ADMISSION NURSE COORDINATOR, MMD UNIT TEACHER [address] [place] [address] 05/01/2024 10:30 AM ANIMAL HOSPITAL OFFICE SUPERVISOR Clinical Support [facility] [address] [address] Nurse, [facility] documented as of this encounter Visit Diagnoses Diagnosis Acute deep vein thrombosis (DVT) of femoral vein of right lower extremity (HCC) Acute deep vein thrombosis (DVT) of right lower extremity, unspecified vein (HCC) documented in this encounter Additional Health Concerns Assessment Noted Time PHQ-9 Depression Total Score: 0 01/14/20 21 1:59 PM ANIMAL HOSPITAL OFFICE SUPERVISOR documented as of this encounter Care Teams Bag Machine Tender Relationship Specialty Start Date End Date Provider, Not On File [place] PCP - General 06/29/22 Tito Wilson MD [address] [place] [id number] Consulting Physician Oncology 08/17/16 documented as of this encounter
--- OUTSIDE RECORDS SUMMARY | 2024-04-18 09:45 | XMS_ITS | Encounter Summary ---
Author Organization [facility] Address [address] [place] [address] Phone Care Team Providers Care Marine Engineering Professor Name Role Phone Aftab Bauer MD Primary Care Provider [phone] Tito Wilson MD Unavailable [phone] Provider, Not On File Primary Care Provider Unav ailable Reason for Visit * Reason Comments Medication Refill Encounter Details Date Type Department Care Team (Late st Contact Info) Description 03/11/2022 Refill [facility] [address] [address] Tito Wilson MD [address] [place] [phone] Medication Refill Social History Tobacco Use [...] on file Legal Sex Female 10:58 AM COMPUTER DRAFTER Gender Identity Not on file Sexual Orientation Not on file COVID-19 Exposure Response Date Recorded In the last 10 days, have yo u been in contact with someone who was confirmed or suspected to have Coronavirus/COVID-19? No / Unsure 02/16/2022 12:48 PM COMPUTER DRAFTER documented as of this encounter Miscellaneous Notes * Telephone Encounter - Alyssa Ogden, SCIENCE INTERN, GEOMORPHOLOGY TEACHER - 03/13/2022 8:47 AM COMPUTER DRAFTER Okay to refill. UTER DRAFTER * Telephone Encounter - Melania Tidwell, RN - 03/13/2022 8:26 AM CST Refill request from pharmacy. UTER DRAFTER documented in this encounter Plan of Treatment Upcoming Encounters Date Type Department Care Team (Late st Contact Info) Description 04/24/2024 10:15 AM COMPUTER DRAFTER Office Visit [facility] [address] [address] Meredith Colon, SCIENCE INTERN, GEOMORPHOLOGY TEACHER [address] [place], [place] [phone] 05/01/2024 10:30 AM COMPUTER DRAFTER Clinical Support [facility] [address] [facility] [address] [address] Nurse, Jaci Galvez documented as of this encounter Visit Diagnoses Diagnosis Vitamin D deficiency Unspecified vitamin D deficiency documented in this encounter Additional Health Concerns Assessment Noted Time PHQ-9 Depression Total Score: 0 01/14/20 21 1:59 PM COMPUTER DRAFTER documented as of this encounter Care Teams Marine Engineering Professor Relationship Specialty Start Date End Date Aftab Bauer MD [address] [place] [address] PCP - General Family Medicine 03/04/15 06/18/22 Provider, Not On File [place] PCP - General 06/29/22 Tito Wilson MD [address] [place] [phone] Consulting Physician Oncology 08/17/16 documented as of this encounter
--- NOTE | 2024-04-18 10:44 | ECG_ITS ---
Test Date: 2024-04-18 11:21:53 Measurements Intervals [place] Rate: 89 P: 48 RI: 166 QRS: 52 QRSD: 74 T: 69 QT: 350 QTc: 427 Interpretive Statements SINUS RHYTHM EARLY PRECORDIAL R/S TRANSITION BASELINE WANDER- V1, V3-V4 BORDERLINE ECG Compared to ECG 03/23/2024 22:31:06 NO SIGNIFICANT CHANGE Electronically Signed On 04-18-2024 11:45:18 BOTTLE WASHER by Junito Umaña D.O.
--- OUTSIDE RECORDS SUMMARY | 2024-04-18 11:08 | XMS_ITS | Encounter Summary ---
Author Organization [facility] Address [address] [place] [address] Phone Care Team Providers Care Cookie Padder Name Role Phone Aftab Bauer MD Primary Care Provider [phone] Tito Wilson MD Unavailable [phone] Provider, Not On File Primary Care Provider Unav ailable Reason for Visit * Reason Comments Medication Refill Encounter Details Date Type Department Care Team (Late st Contact Info) Description 06/09/2022 Refill [facility] [address] [address] Alyssa Daniel, TICKET TAKER FERRYBOAT, BANANA ROOM CUTTER [address] [place] [address] Medication Refill Social History Tobacco [...] on file Legal Sex Female 10:58 AM REGIONAL AGRONOMIST Gender Identity Not on file Sexual Orientation [...] st Contact Info) Description 04/24/2024 10:15 AM REGIONAL AGRONOMIST Office Visit [facility] [address] [address] Meredith Colon, TICKET TAKER FERRYBOAT, BANANA ROOM CUTTER [address] [place] [address] 05/01/2024 10:30 AM REGIONAL AGRONOMIST Clinical Support [facility] [address] [address] Nurse, [facility] documented as of this encounter Visit Diagnoses Diagnosis Vitamin D deficiency Unspecified vitamin D deficiency documented in this encounter Additional Health Concerns Assessment Noted Time PHQ-9 Depression Total Score: 0 01/14/20 21 1:59 PM REGIONAL AGRONOMIST documented as of this encounter Care Teams Cookie Padder Relationship Specialty Start Date End Date Aftab Bauer MD [address] [place] [address] PCP - General Family Medicine 03/04/15 06/18/22 Provider, Not On File [place] PCP - General 06/29/22 Tito Wilson MD [address] [place] [address] Consulting Physician Oncology 08/17/16 documented as of this encounter
--- OUTSIDE RECORDS SUMMARY | 2024-04-18 11:08 | XMS_ITS | Clinical Summary ---
Author Organization [facility] Address [address] [place] [address] Care Team Providers Care Shipping And Receiving Operator Name Role Phone Unavailable Primary Care Provider Unavailabl e Source Comments [facility],non-owned Affiliates and Associated Physician Practices is amultiple site organization consisting of ambulatory clinics and hospital sitesin [place], [place], [place] and [place]. This disclosure is being madepursuant to the Care Everywhere program and may not contain all information available regarding this patient. Last updated 17.[facility] Social History Tobacco Use Types Packs/Day Years [...]
--- OUTSIDE RECORDS SUMMARY | 2024-04-18 11:08 | XMS_ITS | Encounter Summary ---
Author Organization [facility] Address [address] [place] [address] Phone Care Team Providers Care Physician Relations Representative Name Role Phone Tito Wilson MD Unavailable [phone] Provider, Not On File Primary Care Provider Unav ailable Reason for Visit * Reason Onset Date Comments Medication Refill 03/20/2024 Encounter Details Date Type Department Care Team (Late st Contact Info) Description 03/20/2024 Refill [facility] [address] [address] Tito Wilson MD [address] [place] [address] Medication Refill Social History Tobacco [...] on file Legal Sex Female 10:58 AM VACUUM CLOSING MACHINE OPERATOR Gender Identity Not on file Sexual Orientation Not on file documented as of this encounter Functional Status * Question Answer Date of Assessment Author Little interest or pleasure in doing things Not at all 03/20/2024 9:29 AM VACUUM CLOSING MACHINE OPERATOR Theresa You CMA Feeling down, depressed, or hopeless Not at all 03/20/2024 9:29 AM VACUUM CLOSING MACHINE OPERATOR Theresa You CMA * Over the past 2 weeks, how often have you been bothered by any of the following problems? Question Answer Date of Assessment Author Patient Health Questionnaire -2 Score 0 03/20/2024 9:29 AM VACUUM CLOSING MACHINE OPERATOR Theresa You CMA documented as of this encounter Plan of Treatment Upcoming Encounters Date Type Department Care Team (Late st Contact Info) Description 04/24/2024 10:15 AM VACUUM CLOSING MACHINE OPERATOR Office Visit [facility] [address] [address] Meredith Colon, FOOD AND BEVERAGE ASSISTANT, FITTING ROOM OPERATOR [address] [place] [address] 05/01/2024 10:30 AM VACUUM CLOSING MACHINE OPERATOR Clinical Support [facility] [address] [address] Nurse, [facility] documented as of this encounter Visit Diagnoses Diagnosis Acute deep vein thrombosis (DVT) of femoral vein of right lower extremity (HCC) Acute deep vein thrombosis (DVT) of right lower extremity, unspecified vein (HCC) documented in this encounter Additional Health Concerns Assessment Noted Time PHQ-9 Depression Total Score: 0 01/14/20 21 1:59 PM VACUUM CLOSING MACHINE OPERATOR documented as of this encounter Care Teams Physician Relations Representative Relationship Specialty Start Date End Date Provider, Not On File [place] PCP - General 06/29/22 Tito Wilson MD [address] [place] [id number] Consulting Physician Oncology 08/17/16 documented as of this encounter
--- OUTSIDE RECORDS SUMMARY | 2024-04-18 11:08 | XMS_ITS | Encounter Summary ---
Author Organization [facility] Address [address] [place] [address] Phone Care Team Providers Care Mixing Machine Attendant Name Role Phone Aftab Bauer MD Primary Care Provider [phone] Tito Wilson MD Unavailable [phone] Provider, Not On File Primary Care Provider Unav ailable Reason for Visit * Reason Comments Medication Refill Encounter Details Date Type Department Care Team (Late st Contact Info) Description 03/11/2022 Refill [facility] [address] [address] Tito Wilson MD [address] [place] [phone] Medication Refill Social History Tobacco Use [...] on file Legal Sex Female 10:58 AM DIRECTOR OF ASSESSMENT Gender Identity Not on file Sexual Orientation Not on file COVID-19 Exposure Response Date Recorded In the last 10 days, have yo u been in contact with someone who was confirmed or suspected to have Coronavirus/COVID-19? No / Unsure 02/16/2022 12:48 PM DIRECTOR OF ASSESSMENT documented as of this encounter Miscellaneous Notes * Telephone Encounter - Alyssa Ogden, HARD TILE SETTER, FORMING AND ASSEMBLING SUPERVISOR - 03/13/2022 8:47 AM DIRECTOR OF ASSESSMENT Okay to refill. Electronically signed by Alyssa Ogden, HARD TILE SETTER, FORMING AND ASSEMBLING SUPERVISOR at 03/13/2022 8:47 AM DIRECTOR OF ASSESSMENT * Telephone Encounter - Melania Tidwell, RN - 03/13/2022 8:26 AM CST Refill request from pharmacy. CTOR OF ASSESSMENT documented in this encounter Plan of Treatment Upcoming Encounters Date Type Department Care Team (Late st Contact Info) Description 04/24/2024 10:15 AM DIRECTOR OF ASSESSMENT Office [facility] [address] [facility] [address] [address] Meredith Colon, HARD TILE SETTER, FORMING AND ASSEMBLING SUPERVISOR [address] [place], [place] [phone] 05/01/2024 10:30 AM DIRECTOR OF ASSESSMENT Clinical Support [facility] [address] [facility] [address] [address] Nurse, Jaci Galvez documented as of this encounter Visit Diagnoses Diagnosis Vitamin D deficiency Unspecified vitamin D deficiency documented in this encounter Additional Health Concerns Assessment Noted Time PHQ-9 Depression Total Score: 0 01/14/20 21 1:59 PM DIRECTOR OF ASSESSMENT documented as of this encounter Care Teams Mixing Machine Attendant Relationship Specialty Start Date End Date Aftab Bauer MD [address] [place] [address] PCP - General Family Medicine 03/04/15 06/18/22 Provider, Not On File [place] PCP - General 06/29/22 Tito Wilson MD [address] [place] [id number] Consulting Physician Oncology 08/17/16 documented as of this encounter
--- OUTSIDE RECORDS SUMMARY | 2024-04-18 11:08 | XMS_ITS | Patient Health Summary ---
Author Organization [facility] Address [address] [facility] [place] [address] Care Team Providers Care Final Cleaner Name Role Phone Unavailable Primary Care Provider Unavailabl e Note from [facility],non-owned Affiliates and Associated Physician Practices is amultiple site organization consisting of ambulatory clinics and hospital sitesin [place], [place], [place] and [place]. This disclosure is being madepursuant to the Care Everywhere program and may not contain all information available regarding this patient. Last updated 17.[facility] Social History Tobacco Use Types Packs/Day Years Used Date Smoking Tobacco: Never Assessed Sex and Gender Information Value Date Recorded Sex Assigned at Not on file Gender Identity Not on file Sexual Orientation Not on file Procedures * MRI BREAST BILAT [facility]WO CONTRAST(Performed 02/18/2015) * CREATININE BLOOD - POCT (IP) [facility](Performed 02/18/2015) Results * MRI BREAST BILAT [facility]WO CONTRAST (02/18/2015 8:39 PM FRONT DESK) Anatomical Region Laterality Modality Breast Bilateral Other Impressions 02/22/2015 1:46 PM FRONT DESK IMPRESSION: BI-RADS category 6, known malignancy. Large [...] 1:46 PM . Narrative 02/22/2015 1:46 PM FRONT DESK MRI of the breasts with and without contrast COMPARISON: Diagnostic mammography and ultrasound performed 02/03/2015 at an outside institution. HISTORY: Left breast cancer TECHNIQUE: Multiplanar multisequence MR imaging of both breasts before and following the administration of intravenous gadolinium contrast. Dynamic phase imaging was performed in the axial plane. Exam processed by and interpreted on a [employer] senior sql server database developer including 3-D volume rendering, subtraction image processing [...] plane. Exam processed by andinterpreted on a [employer] senior sql server database developer including 3-D volume rendering, subtraction image processing [...] was electronically signed by ASHWIN GONZALEZ M.D. on02/22/2015 1:46 PM . Historical Provider MR ORDERABLES * CREATININE BLOOD - POCT (IP) [facility] (02/18/2015) Creatinine POCT 0.87 0.3 - 1.3 mg/dL [facility] eGFR POCT 60 60 ml/min [facility] 02/18/2015 Dipika Gonzalez MD LAB - POINT OF CA RE ORDERABLES [facility]
--- OUTSIDE RECORDS SUMMARY | 2024-04-18 11:08 | XMS_ITS ---
Author Organization [facility] Address [address], [facility] [address] [place] [address] Phone Care Team Providers Care Salon Professional Name Role Phone Tito Wilson MD Unavailable [phone] Provider, Not On File Primary Care Provider [...] - TAXOL WEEKLY - POST AC - [facility] 6 11/01/2015 PACLitaxel (TAXOL) chemo infusion Therapy [...]
--- OUTSIDE RECORDS SUMMARY | 2024-04-18 11:08 | XMS_ITS | Clinical Summary ---
Author Organization [facility] Address [address] [place] [address] Care Team Providers Care Building Pressure Washer Name Role Phone Daniela Wilson MD Unavailable [phone] Merari Eller MD Primary Care Provider Talon [...] Department Care Team Description 04/08/2024 9:10 AM MILITARY PROFESSIONAL - 04/08/2024 11:59 PM MILITARY PROFESSIONAL Hospital Encounter [facility] [address] [place] [address] Meredith Zurita NP Discharge Disposition: Home or Self Care (Routine Discharge) 04/08/2024 Orders Only [facility] [address] [place] [address] Meredith Zurita NP 04/08/2024 Travel 03/28/2024 12:45 PM MILITARY PROFESSIONAL - 03/28/2024 11:59 PM MILITARY PROFESSIONAL Hospital Encounter [facility] Radiation Oncology [address] [place] [address] [place] [address] Talon Hunter MD Consult Discharge Disposition: Home or Self Care (Routine Discharge) 03/28/2024 Travel 03/20/2024 Telephone [facility] Radiation Oncology [address] [place] [address] [place] [address] Talon Hunter MD Appointment Request 03/20/2024 Orders Only [facility] [place] [address] Daniela Wilson MD 03/18/2024 10:05 AM MILITARY PROFESSIONAL - 03/18/2024 11:59 PM MILITARY PROFESSIONAL Hospital Encounter [facility] [address] [place] [address] Daniela Wilson MD Discharge Disposition: Home or Self Care (Routine Discharge) 03/18/2024 Orders Only [facility] [address] [place] [address] Daniela Wilson MD 03/18/2024 Travel 02/11/2024 8:34 AM MILITARY PROFESSIONAL - 02/11/2024 11:59 PM MILITARY PROFESSIONAL Hospital Encounter [facility] Nuclear Medicine [address] [place] [address] Meredith Zurita NP Discharge Disposition: Home or Self Care (Routine Discharge) 02/11/2024 Travel 02/05/2024 9:43 AM MILITARY PROFESSIONAL - 02/05/2024 11:59 PM MILITARY PROFESSIONAL Hospital En[facility] [address] [facility] [place] [address] Meredith Zurita NP Discharge Disposition: Home or Self Care (Routine Discharge) 02/05/[address] [facility] [id number] [place] [address] Meredith Zurita NP 02/05/2024 Travel 02/01/2024 8:43 AM MILITARY PROFESSIONAL - 02/01/2024 11:59 PM MILITARY PROFESSIONAL [place] [address] [place] [address] Meredith Zurita NP Discharge Disposition: Home or Self Care (Routine Discharge) 02/01/2024 Travel 01/22/2024 8:38 AM MILITARY PROFESSIONAL - 01/22/2024 11:59 PM MILITARY PROFESSIONAL Hospital Encounter [facility] [address] [place] [address] Meredith Zurita NP Discharge Disposition: Home or Self Care (Routine Discharge) 01/22/2024 Travel 01/17/2024 Transcribe Orders [facility] Pre Access Team [address] [place] [address] Meredith Zurita NP from Last 3 Months [...] Sex Assigned at Female 03/18/2024 10:11 AM MILITARY PROFESSIONAL Legal Sex Female 8:28 PM CDT Gender Identity Not on file Sexual Orientation Not on file Last Filed Vital Signs Vital Sign Reading Time Taken Comments Blood Pressure 129/82 03/28/2024 1:17 PM MILITARY PROFESSIONAL Pulse 103 03/28/2024 1:17 PM MILITARY PROFESSIONAL Temperature 36.8 C (98.2 F) 06/15/2022 3:09 PM CDT Respiratory Rate 18 07/07/2022 3:22 PM CDT Oxygen Saturation 94% 03/28/2024 1:17 PM MILITARY PROFESSIONAL Inhaled Oxygen Concentration - - Weight 53.7 kg (118 lb 6.4 oz) 06/15/2022 3:09 P M CDT Height 160 cm (5' 3 ) 03/28/2024 1:17 PM MILITARY PROFESSIONAL Body Mass Index 21.66 06/15/2022 3:09 PM [...] 06/09/2020 Influenza Adult (#1) 2023 PHQ-2 (Physician [place]) 03/05/2024 06/15/2022 Mammogram Screening 07/12/2024 07/12/2022, 06/12/2017 [...] COMPREHENSIVE METABOLIC PANEL Routine 04/08/2024 9:16 AM MILITARY PROFESSIONAL 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) CBC W/DIFF AUTOMATED Routine 04/08/2024 9:16 AM MILITARY PROFESSIONAL 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) CA 15 3, SERUM Routine 03/18/2024 10:24 AM MILITARY PROFESSIONAL Malignant neoplasm metastatic to bone (CMS/HCC HHS/HCC) Elevated liver enzymes Memory changes 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) CARCINOEMBRYONIC ANTIGEN Routine 025 10:24 AM MILITARY PROFESSIONAL Malignant neoplasm metastatic to bone (CMS/HCC HHS/HCC) Elevated liver enzymes Memory changes 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) LDH, LACTATE DEHYDROGENASE Routine 03/18/2024 10:24 AM MILITARY PROFESSIONAL Malignant neoplasm metastatic to bone (CMS/HCC HHS/HCC) Elevated liver enzymes Memory changes COMPREHENSIVE METABOLIC PANEL Routine 03/18/2024 10:24 AM MILITARY PROFESSIONAL Malignant neoplasm metastatic to bone (CMS/HCC HHS/HCC) Elevated liver enzymes Memory changes CBC W/DIFF AUTOMATED Routine 03/18/2024 10:24 AM MILITARY PROFESSIONAL Malignant neoplasm metastatic to bone (CMS/HCC HHS/HCC) Elevated liver enzymes Memory changes NM BONE SCAN WHOLE BODY WO SPECT Routine 02/11/2024 11:46 AM MILITARY PROFESSIONAL Metastasis to bone (CMS/HCC HHS/HCC) CA 15 3, SERUM Routine 02/05/2024 10:06 AM MILITARY PROFESSIONAL 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) Malignant neoplasm metastatic to bone (CMS/HCC HHS/HCC) CARCINOEMBRYONIC ANTIGEN Routine 024 10:06 AM MILITARY PROFESSIONAL 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) Malignant neoplasm metastatic to bone (CMS/HCC HHS/HCC) LDH, LACTATE DEHYDROGENASE Routine 02/05/2024 10:06 AM MILITARY PROFESSIONAL 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) Malignant neoplasm metastatic to bone (CMS/HCC HHS/HCC) COMPREHENSIVE METABOLIC PANEL Routine 02/05/2024 10:06 AM MILITARY PROFESSIONAL 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) Malignant neoplasm metastatic to bone (CMS/HCC HHS/HCC) CBC W/DIFF AUTOMATED Routine 02/05/2024 10:06 AM MILITARY PROFESSIONAL 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 GLUCOSE 106(H) 70 - 99 MG/DL 04/08/2024 9:58 AM [facility] BUN 14 7 - 18 MG/DL 04/08/2024 9:58 AM [facility] CREATININE S/P/B 0.63 0.55 - 1.02 MG/DL 04/08/2024 9:58 AM [facility] SODIUM S/P/B 143 136 - 145 MMOL/L 04/08/2024 9:58 AM [facility] POTASSIUM S/P/B 3.6 3.5 - 5.1 MMOL/L 04/08/2024 9:58 AM [facility] CHLORIDE S/P/B 105 100 - 108 MMOL/L 04/08/2024 9:58 AM [facility] CO2 31.1 21 - 32 MMOL/L 04/08/2024 9:58 AM [facility] CALCIUM S/P/B 9.8 8.5 - 10.1 MG/DL 04/08/2024 9:58 AM [facility] BILIRUBIN TOTAL S/P/B 0.2 0.2 - 1.2 MG/DL 04/08/2024 9:58 AM [facility] TOTAL PROTEIN S/P/B 5.6(L) 6.4 - 8.2 G/DL 04/08/2024 9:58 AM [facility] ALBUMIN S/P/B 2.8(L) 3.4 - 5.0 G/DL 04/08/2024 9:58 AM [facility] AST 33 15 - 37 U/L 04/08/2024 9:58 AM [facility] ALT 16 14 - 55 U/L 04/08/2024 9:58 AM [facility] ALKALINE PHOSPHATASE S/P/B 72 50 - 136 U/L 04/08/2024 9:58 AM [facility] ANION GAP 6.9 5 - 15 MMOL/L 04/08/2024 9:58 AM [facility] BUN CREATININE RATIO 22.2 6 - 26 04/08/2024 9:58 AM [facility] A/G RATIO 1.0 1.0 - 2.0 RATIO 04/08/2024 9:58 AM [facility] GFR ESTIMATE >90 >90 ML/MIN/1.7 3 M2 04/08/2024 9:58 AM [facility] Comment: NOTE: eGFR is not calculated for patients <18 years of age. This is an estimated GFR calculation using the new CKD EPI creatinine equation without race and so does not require a correction factor for race. This estimated GFR should not be used for calculating drug doses. 04/08/2024 9:16 AM MILITARY PROFESSIONAL Meredith Zurita NP LABORATORY Final Result [facility] [address] [place] [address], * (ABNORMAL) CBC W/DIFF AUTOMATED (04/08/2024 9:16 AM MILITARY PROFESSIONAL) Only the most recent of3 resultswithin the time period is included. WBC 4.87 4.4 - 11.0 x10'3/uL 04/08/2024 9:38 AM [facility] RBC 4.22(L) 4.50 - 5.10 x10'6/uL 04/08/2024 9:38 AM [facility] HGB 11.7(L) 12.3 - 15.3 G/DL 04/08/2024 9:38 AM [facility] HCT 37.4 35.9 - 44.6 % 04/08/2024 9:38 AM [facility] MCV 88.6 80.0 - 96.0 FL 04/08/2024 9:38 AM [facility] MCH 27.7 25.3 - 30.9 PG 04/08/2024 9:38 AM [facility] MCHC 31.3 31.0 - 34.1 G/DL 04/08/2024 9:38 AM [facility] RDW 15.3(H) 12.4 - 15.1 % 04/08/2024 9:38 AM [facility] PLT 549(H) 151 - 353 x10'3/uL 04/08/2024 9:38 AM [facility] MPV 8.7(L) 9.6 - 12.0 FL 04/08/2024 9:38 AM [facility] RBC MORPHOLOGY NORMAL 04/08/2024 9:38 AM [facility] PLT MORPH. NORMAL 04/08/2024 9:38 AM [facility] WBC MORPHOLOGY NORMAL 04/08/2024 9:38 AM [facility] LYMPHOCYTES % 21.6 15.8 - 45.0 % 04/08/2024 9:38 AM [facility] NEUTROPHILS % 66.5 42.1 - 71.9 % 04/08/2024 9:38 AM [facility] MONOCYTES % 9.9 5.7 - 12.5 % 04/08/2024 9:38 AM [facility] EOSINOPHILS 0.4 0.0 - 5.6 % 04/08/2024 9:38 AM [facility] BASOPHILS 1.2 0.0 - 1.3 % 04/08/2024 9:38 AM [facility] ABS. NEUTROPHILS 3.24 1.40 - 6.00 x10'3/uL 04/08/2024 9:38 AM [facility] IMMATURE GRANS % 0.4 0.0 - 0.5 % 04/08/2024 9:38 AM [facility] ABS. LYMPHOCYTES 1.05 0.80 - 4.70 x10'3/uL 04/08/2024 9:38 AM MILITARY PROFESSIONAL [facility] 04/08/2024 9:16 AM MILITARY PROFESSIONAL Meredith Zurita NP LABORATORY Final Result Performing Organization Address City/[facility]/ZIP Co de Phone Number [facility] [address] [place] [address], [place] [phone] * (ABNORMAL) CA 15 3, SERUM (03/18/2024 10:24 AM MILITARY PROFESSIONAL) Only the most recent of2 resultswithin the time period is included. Pathologist [facility] [place] CA 15 3 S/P/B 48(H) <32 U/mL 03/21/2024 5:10 AM MILITARY PROFESSIONAL [employer] [employer] Comment: This test was performed using the Siemens chemiluminescent method. Values obtained from different assay methods cannot be used inter- changeably. CA 15-3 levels, regardless of value, should not be interpreted as absolute evidence of the presence or absence of disease. Test Performed by [employer], [facility], [address] [place] [address] Bonifacio Robledo M.D., Ph.D., Director of Laboratories , [place] [id number] 03/18/2024 10:2 4 AM MILITARY PROFESSIONAL Daniela Wilson MD LABORATORY Final Resul t Performing Organization Address City/[facility]/ZIP Co de Phone Number [facility] [address] [place], [place] , [place] [phone] * LDH, LACTATE DEHYDROGENASE (03/18/2024 10:24 AM MILITARY PROFESSIONAL) Only the most recent of2 resultswithin the time period is included. Pathologist [facility] [place] LDH 157 84 - 246 UNITS/L 03/18/2024 11:00 AM MILITARY PROFESSIONAL [facility] 03/18/2024 10:2 4 AM MILITARY PROFESSIONAL us Daniela Wilson MD LABORATORY Final Resul t Performing Organization Address [facility] Co de Phone Number [facility] [address] [place] [address], [place] [phone] * (ABNORMAL) CARCINOEMBRYONIC ANTIGEN (03/18/2024 10:24 AM MILITARY PROFESSIONAL) Only the most recent of2 resultswithin the time period is included. CEA 7.1(H) 0.0 - 3.0 NG/ML 03/18/2024 3:14 PM MILITARY PROFESSIONAL [facility] Comment: Test was performed using the Siemens method. Results obtained with other assay methods or kits cannot be used interchangeably with results obtained by the Siemens method. 03/18/2024 10:2 4 AM MILITARY PROFESSIONAL us Daniela Wilson MD LABORATORY Final Resul t Performing Organization Address [facility] Co de Phone Number [facility] [address] [place] [address], [place] [phone] * NM BONE SCAN WHOLE BODY WO SPECT (02/11/2024 11:46 AM MILITARY PROFESSIONAL) Anatomical Region Laterality Modality Bone Nuclear Medicine 02/11/2024 2:31 PM MILITARY PROFESSIONAL Impressions 02/11/2024 3:50 PM MILITARY PROFESSIONAL IMPRESSION: 1. Interval progression of osteoblastic metastases with increasing uptake throughout the thoracolumbar spine corresponding with progressive sclerotic lesions on recent CT. 2. Mild multifocal osteoarthritic degenerative uptake. The attending radiologist has reviewed the image(s) and agrees with the content of this report. Ordered By: MERDEITH ZURITA Interpreted By: Chico Cantrell MD, 02/11/2024 2:31 PM Narrative 02/11/2024 3:50 PM MILITARY PROFESSIONAL [facility] [address] [place] [address] EXAMINATION: BONE SCINTIGRAPHY (WHOLE-BODY) DATE OF STUDY: [...] Procedure Note Sandi Morocho MD - 02/11/2024 [facility] [address] [place] [address] EXAMINATION: BONE SCINTIGRAPHY (WHOLE-BODY) DATE OF STUDY: 02/11/2024 RADIOPHARMACEUTICAL: 25.1 mCi Tc-99m MDP i.v. HISTORY: Stage IV breast cancer with bone metastases. Assess treatmentresponse after finishing 6 round of chemotherapy. FINDINGS: Delayed whole-body scintigrams were obtained. Prior nuclear medicine studies used for comparison: none Other radiographic comparisons: CT chest, abdomen, and ethiyl2702/01/2024. There is increased uptake throughout the thoracolumbar [...] MD, 02/11/2024 2:31 PM us Meredith Zurita SALES TRAINER NUC MED Final Result * CT CHEST+ABD+PEL WO CON (02/01/2024 8:56 AM MILITARY PROFESSIONAL) Anatomical Region Laterality Modality Chest, Abdomen, Pelvis Computed Tomography 02/01/2024 2:23 PM MILITARY PROFESSIONAL Impressions 02/01/2024 2:49 PM MILITARY PROFESSIONAL IMPRESSION: 1. Overall disease progression as described. See text. 2. Otherwise, no acute intrathoracic, intra-abdominal or intrapelvic process identified. 3. Additional chronic/nonurgent findings as described. Ordered By: MEREDITH ZURITA Interpreted By: Favian Rosario MD, 02/01/2024 2:23 PM Narrative 02/01/2024 2:49 PM MILITARY PROFESSIONAL [facility] [address] [place] [address] Examination: CT of the chest, abdomen and [...] Procedure Note Favian Rosario MD - 02/01/2024 [facility] [address] [place] [address] Examination: CT of the chest, abdomen and [...] Rosario MD, 02/01/2024 2:23 PM Meredith Zurita SALES TRAINER CT Final Result * USE ECHOCARDIOGRAM (01/22/2024 9:18 AM MILITARY PROFESSIONAL) Anatomical Region Laterality Modality Cardiac Ultrasound 01/22/2024 8:49 AM MILITARY PROFESSIONAL Narrative 01/23/2024 9:31 AM MILITARY PROFESSIONAL PÉREZ PEREZ Pat.Name: Sammi Cee.ID: [id number] .Date: 01/22/2024 Refer.MD: Sheba, [facility] Radiology Exam Time: 8:49:00 AM Study Type:OUTREACH Height: 62 in Weight: 114 lb BSA: 1.51 m2 Age: 9 1950,73Y Sex: F Sonogrphr: Adam Pat. Stat.:Outpatient Reason for Study:High risk medication use Procedures: Study performed at [place], [place] and interpreted by [facility]. 2D, M-mode, Doppler, Color Flow [...] PÉREZ PEREZ Pat.Name: Coleman Sammi j Pat.ID: [id number] .Date: 01/22/2024 Refer.MD: Sheba [facility] Radiology Exam Time: 8:49:00 AM Study Type:[facility] Height: 62 in Weight: 114 lb BSA: 1.51 m2 Age: 9 1950,73Y Sex: F Sonogrphr: Adam Pat. Stat.:Outpatient Reason for Study:High risk medication use Procedures: Study performed at [place], [place] and interpreted by [facility]. 2D, M-mode, Doppler, Color Flow [...] Result * BONE DENSITY/DEXA (01/19/2023 10:08 AM MILITARY PROFESSIONAL) Anatomical Region Laterality Modality Bone Bone Density 01/20/2023 6:20 AM MILITARY PROFESSIONAL Impressions 01/20/2023 6:30 AM MILITARY PROFESSIONAL IMPRESSION: 1. Osteoporosis with progression of osteoporosis [...] 01/20/2023 6:20 AM Narrative 01/20/2023 6:30 AM MILITARY PROFESSIONAL [facility] [address] [place] [address] EXAM: Bone DENSITY DEXA EXAM LUMBAR SPINE [...] Procedure Note Dorota Canas MD - 12/15/2023 [facility] [address] [place] [address] EXAM: Bone DENSITY DEXA EXAM LUMBAR SPINE [...] ID:[id number] Type:Not on file Address: [address] [address] [place] [address] Care Teams Building Pressure Washer Relationship Specialty Start Date End Date Merari Eller MD [address] [place] [address] PCP - General FAMILY PRACTICE 06/01/21 Daniela Wilson MD Medical Oncologist HEMATOLOGY/ONCOLOGY 09/30/18 Talon Hunter MD [address] [place] [address] Consulting Physician RADIATION ONCOLOGY 03/28/24
--- OUTSIDE RECORDS SUMMARY | 2024-04-18 11:08 | XMS_ITS | Clinical Summary ---
Author Organization [facility] Address [address], [facility] [address] [place] [address] Phone Care Team Providers Care Credit Administrator Name Role Phone Tito Wilson MD Unavailable [phone] Provider, Not On File Primary Care Provider Unav ailable Allergies Active Allergy Reactions Criticality Noted Date Comments Iodinated Contrast Media Other (see Comments) 06/07/2020 Hot, dizzy, flushed Medications Cyanocobalamin (VITAMIN B 12 PO) Take by mouth. 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) 04/03/2024 10:15 AM CYBER SECURITY ARCHITECT Office Visit [facility] [address] [address] Meredith Colon, BYPRODUCTS EXTRACTOR, POCKET SETTER LOCKSTITCH 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) 04/03/2024 Travel 03/25/2024 10:00 AM CYBER SECURITY ARCHITECT Care Management [facility] [address] [phone] Navigator, [facility] Nurse Care Management (EDUCATION PREP) 03/20/2024 9:45 AM CYBER SECURITY ARCHITECT Clinical Support [facility] [address] [address] 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); Malignant neoplasm metastatic to bone (HCC) 03/20/2024 9:30 AM CYBER SECURITY ARCHITECT Office Visit [facility] [address] [address] Tito Wilson MD Malignant neoplasm metastatic to bone (HCC) (Primary Dx); Memory changes; Elevated liver enzymes; Inflammatory carcinoma of left breast (HCC) 03/20/2024 Refill [facility] [address] [address] Tito Wilson MD Medication Refill 03/20/2024 Travel 02/28/2024 9:45 AM CYBER SECURITY ARCHITECT Clinical Support [facility] [place] [address] [place] [phone] 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); Malignant neoplasm metastatic to bone (HCC); Elevated liver enzymes; Memory changes 02/28/2024 Travel 02/07/2024 9:30 AM CYBER SECURITY ARCHITECT Clinical Support [facility] [address] [facility] [address] [address] 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); Acute deep vein thrombosis (DVT) of femoral vein of right lower extremity (HCC); Acute deep vein thrombosis (DVT) of right lower extremity, unspecified vein (HCC) 02/07/2024 9:15 AM CYBER SECURITY ARCHITECT Office Visit [facility] [address] [address] Tito Wilson MD Malignant neoplasm metastatic to bone (HCC) (Primary Dx); Hypercalcemia; Elevated liver enzymes; Memory changes; Inflammatory carcinoma of left breast (HCC); Acute deep vein thrombosis (DVT) of femoral vein of right lower extremity (HCC) 02/07/2024 Travel 01/17/2024 9:45 AM CYBER SECURITY ARCHITECT Clinical Support [facility] [address] [address] 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) 01/17/2024 9:30 AM CYBER SECURITY ARCHITECT Office Visit [facility] [address] [phone] Meredith Colon, BYPRODUCTS EXTRACTOR, POCKET SETTER LOCKSTITCH 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); Malignant neoplasm metastatic to bone (HCC); High risk medication use 01/17/2024 Travel from Last 3 Months Immunizations Immunization Administration Dates Next Due Covid-19 Vaccine, Vector-nr, Rs-ad26, Pf, 0.5 Ml (Wingu/J&Keclon) 06/09/2020 Family History Medical History Relation Name [...] on file Legal Sex Female 10:58 AM CYBER SECURITY ARCHITECT Gender Identity Not on file Sexual Orientation Not on file Last Filed Vital Signs Vital Sign Reading Time Taken Comments Blood Pressure 152/84 04/10/2024 10:08 AM CYBER SECURITY ARCHITECT Pulse 115 04/10/2024 10:08 AM CYBER SECURITY ARCHITECT Temperature 36.8 C (98.3 F) 04/10/2024 10:08 AM CYBER SECURITY ARCHITECT Respiratory Rate 18 04/10/2024 10:08 AM CYBER SECURITY ARCHITECT Oxygen Saturation 95% 04/10/2024 10:08 AM CYBER SECURITY ARCHITECT Inhaled Oxygen Concentration - - Weight 54.4 kg (120 lb) 04/10/2024 10:08 AM CYBER SECURITY ARCHITECT Height 160 cm (5' 3 ) 04/10/2024 10:08 AM CYBER SECURITY ARCHITECT Body Mass Index 21.26 04/10/2024 10:08 AM CYBER SECURITY ARCHITECT Plan of Treatment Upcoming Encounters Date Type Department Care Team (Late st Contact Info) Description 04/24/2024 10:15 AM CYBER SECURITY ARCHITECT Office Visit [facility] [place] [address] [address] Meredith Colon, BYPRODUCTS EXTRACTOR, POCKET SETTER LOCKSTITCH [address] [place], [place] [id number] 05/01/2024 10:30 AM CYBER SECURITY ARCHITECT Clinical Support [facility] [address] [address] Nurse, [facility] [place] Health Maintenance Due Date Last Done Comments [...] AUTO DIFF [place] Routine 02/28/2024 9:34 AM CYBER SECURITY ARCHITECT Inflammatory carcinoma of left breast (HCC) CMP (COMPREHENSIVE METABOLIC PANEL) Routine 02/28/2024 9:34 AM CYBER SECURITY ARCHITECT Malignant neoplasm metastatic to bone (HCC) Elevated liver enzymes Memory changes Inflammatory carcinoma of left breast (HCC) LACTATE DEHYDROGENASE (LD) Routine 02/28/2024 9:34 AM CYBER SECURITY ARCHITECT Malignant neoplasm metastatic to bone (HCC) Elevated liver enzymes Memory changes Inflammatory carcinoma of left breast (HCC) CANCER ANTIGEN (CA) 15-3 Routine 024 9:34 AM CYBER SECURITY ARCHITECT Malignant neoplasm metastatic to bone (HCC) Elevated liver enzymes Memory changes Inflammatory carcinoma of left breast (HCC) CARCINOEMBRYONIC ANTIGEN (CEA) Routine 02/28/2024 9:34 AM CYBER SECURITY ARCHITECT Malignant neoplasm metastatic to bone (HCC) Elevated liver enzymes Memory changes Inflammatory carcinoma of left breast (HCC) CT CHEST W CONTRAST Routine 03/12/2017 from Last 3 Months or Most Recently Relevant to Health Maintenance Results * (ABNORMAL) CBC WITH AUTO DIFF [place] (02/28/2024 9:34 AM CYBER SECURITY ARCHITECT) WBC 5.3 4.0 - 10.0 10*3/uL [facility] HGB 11.4 11.2 - 15.7 g/dL [facility] HCT 37.2 34.1 - 44.9 % [facility] PLT 475(H) 163 - 369 10*3/uL [facility] MPV 8.7(L) 9.4 - 12.4 fL [facility] RBC 4.07 3.93 - 5.22 10*6/uL [facility] MCV 91 79 - 95 fL [facility] MCH 28.0 25.6 - 32.2 pg [facility] MCHC 30.6(L) 32.2 - 36.5 g/dL [facility] RDW 14.6(H) 11.6 - 14.4 % [facility] Neutrophils % 67.9(H) 36.0 - 66.0 % [facility] Lymphocytes % 20.6 19.0 - 40.0 % [facility] Monocytes % 8.9 4.1 - 12.1 % [facility] Eosinophils % 1.1 0.0 - 3.5 % [facility] Basophils % 1.3(H) 0.0 - 1.0 % [facility] Absolute Neutrophils 3.6 1.4 - 6.6 10*3/uL [facility] Absolute Lymphocytes 1.1 0.8 - 4.0 10*3/uL [facility] Absolute Monocytes 0.5 0.2 - 1.2 10*3/uL [facility] Absolute Eosinophils 0.1 0.0 - 0.4 10*3/uL [facility] Absolute Basophils 0.1 0.0 - 0.1 10*3/uL [facility] 02/28/2024 9:34 AM CYBER SECURITY ARCHITECT us Tito Wilson MD LAB SEND OUTS Final Resul t [facility] [address] [address], [place] [phone] * (ABNORMAL) LACTATE DEHYDROGENASE (LD) (02/28/2024 9:34 AM CYBER SECURITY ARCHITECT) LDH 120(L) 140 - 271 U/L [facility] Blood 02/28/2024 9:34 AM CYBER SECURITY ARCHITECT Narrative [facility] - 02/28/2024 10:38 AM CYBER SECURITY ARCHITECT Release to patient->Immediate Tito Wilson MD CHEMISTRY ORDERABLES Final Result [facility] [address] [address], [place] [phone] * (ABNORMAL) CMP (COMPREHENSIVE METABOLIC PANEL) (02/28/2024 9:34 AM CYBER SECURITY ARCHITECT) Glucose 107(H) 70 - 105 mg/dL [facility] Blood Urea Nitrogen 13 7 - 25 mg/dL [facility] Creatinine 0.5(L) 0.6 - 1.2 mg/dL [facility] Sodium 141 136 - 145 mEq/L [facility] Potassium 4.0 3.5 - 5.1 mEq/L [facility] Chloride 105 98 - 107 mEq/L [facility] Bicarbonate 29 21 - 31 mEq/L [facility] Total Bilirubin 0.2(L) 0.3 - 1.0 mg/dL [facility] Alk. Phosphatase 47 34 - 104 U/L [facility] Aspartate Aminotransferase 20 13 - 39 U/L [facility] Alanine Aminotransferase 9 7 - 52 U/L [facility] Total Protein 5.7(L) 6.4 - 8.9 g/dL [facility] Albumin 3.4(L) 3.5 - 5.7 g/dL [facility] Calcium 9.9 8.6 - 10.3 mg/dL [facility] Anion Gap 11.0 7.0 - 15.0 mEq/L [facility] Globulin 2.3 2.0 - 3.5 g/dL [facility] EGFR 99 >60 ml/min/1. 73m2 [facility] Comment: This eGFR is calculated using 2020 CKD-EPI Creatinine equation without race modifier based on the NKF-ASN task force recommendations Blood 02/28/2024 9:34 AM CYBER SECURITY ARCHITECT Narrative [facility] - 02/28/2024 10:38 AM CYBER SECURITY ARCHITECT Release to patient->Immediate IS THE PATIENT REQUIRED TO BE FASTING FOR 8 HOURS?->No us Tito Wilson MD CHEMISTRY ORDERABLES Final Result Performing Organization Address City/[facility]/ZIP Co de Phone Number [facility] [address] [place] [address], [place] [phone] * (ABNORMAL) CARCINOEMBRYONIC ANTIGEN (CEA) (02/28/2024 9:34 AM CYBER SECURITY ARCHITECT) CEA 5.3(H) 0.0 - 5.0 ng/mL [facility] Comment: Olivier Paramagnetic Particle Chemiluminescent Immunoassay Method Blood 02/28/2024 9:34 AM CYBER SECURITY ARCHITECT Narrative [facility] - 02/29/2024 11:15 AM CYBER SECURITY ARCHITECT Release to patient->Immediate us Tito Wilson MD CHEMISTRY ORDERABLES Final Result [facility] [address] [place] [address], [place] [phone] * (ABNORMAL) CANCER ANTIGEN (CA) 15-3 (02/28/2024 9:34 AM CYBER SECURITY ARCHITECT) CA15-3 35.5(H) 0.0 - 31.3 U/mL [facility] Comment: Olivier Paramagnetic Particle Chemiluminescent Immunoassay Method Blood 02/28/2024 9:34 AM CYBER SECURITY ARCHITECT Narrative [facility] - 02/29/2024 11:31 AM CYBER SECURITY ARCHITECT Release to patient->Immediate Tito Wilson MD CHEMISTRY ORDERABLES Final Result [facility] [address] [place] [address], [place] [phone] * CT CHEST W CONTRAST (03/12/2017) Anatomical Region Laterality Modality Chest N/A Other us Tito Wilson MD IMG CT ORDERABLES Final Res ult from Last 3 Months or Most Recently Relevant to Health Maintenance Insurance MEDICARE [employer] Care Teams Credit Administrator Relationship Specialty Start Date End Date Provider, Not On File [place] PCP - General 06/29/22 Ttio Wilson MD [address] [place] [phone] Consulting Physician Oncology 08/17/16
--- OUTSIDE RECORDS SUMMARY | 2024-04-18 11:08 | XMS_ITS | Referral Summary ---
Author Organization [facility] Address [address] [place] [address] Care Team Providers Care Document Restorer Name Role Phone Unavailable Primary Care Provider Unavailabl e Source Comments [facility],non-owned Affiliates and Associated Physician Practices is amultiple site organization consisting of ambulatory clinics and hospital sitesin [place], [place], [place] and [place]. This disclosure is being madepursuant to the Care Everywhere program and may not contain all information available regarding this patient. Last updated 17.[facility] Social History Tobacco Use Types Packs/Day Years Used Date Smoking Tobacco: Never Assessed Sex and Gender Information Value Date Recorded Sex Assigned at Not on file Gender Identity Not on file Sexual Orientation Not on file Plan of Treatment Not on file
--- OUTSIDE RECORDS SUMMARY | 2024-04-18 11:08 | XMS_ITS | Encounter Summary ---
Author Organization [facility] Address [facility] [place] [address] Care Team Providers Care Operations Coordinator Name Role Phone Tito Wilson MD Unavailable [phone] Merari Eller MD Primary Care Provider Talon Hunter MD Unavailable Reason for Visit * Reason Onset Date Comments Preprocedure Call 09/25/2023 Encounter Details Date Type Department Care Team (Late st Contact Info) Description 09/25/2023 Pre-Procedure Call [facility] Interventional Radiology [facility] [place] [address] Clyde Singh MD [address] [place] [phone] Preprocedure Call Social History Tobacco Use Types [...] Sex Assigned at Female 03/18/2024 10:11 AM SENIOR COMMUNICATIONS SPECIALIST Legal Sex Female 8:28 PM CDT Gender Identity Not on file Sexual Orientation Not on file documented as of this encounter Plan of Treatment Not on file documented as of this encounter Visit Diagnoses Not on filedocumented in this encounter Care Teams Operations Coordinator Relationship Specialty Start Date End Date Merari Eller MD [address] [place] [address] PCP - General FAMILY PRACTICE 06/01/21 Tito Wilson MD Medical Oncologist HEMATOLOGY/ONCOLOGY 09/30/18 Talon Hunter MD [address] [place] [address] Consulting Physician RADIATION ONCOLOGY 03/28/24 documented as of this encounter
--- OUTSIDE RECORDS SUMMARY | 2024-04-18 11:08 | XMS_ITS | Encounter Summary ---
Author Organization [facility] Address [address] [place] [address] Phone Care Team Providers Care Supervisor Line Department Name Role Phone Aftab Bauer MD Primary Care Provider Tito Wilson MD Unavailable [phone] Provider, Not On File Primary Care Provider Unav ailable Encounter Details Date Type Department Care Team (Late st Contact Info) Description 12/24/2020 Telephone [facility] [place] [address] [place] [address] Tito Wilson MD [address] [place] [address] Social History Tobacco Use Types [...] on file Legal Sex Female 10:58 AM VICE PRESIDENT COMPLIANCE Gender Identity Not on file Sexual Orientation [...] PATIENT IS SCHEDULED FOR HER DEXA IN [place] 12/30/20 AT 1PM. documented in this encounter Plan of Treatment Upcoming Encounters Date Type Department Care Team (Late st Contact Info) Description 04/24/2024 10:15 AM VICE PRESIDENT COMPLIANCE Office Visit [facility] [address] [facility] [address] [place] [address] Meredith Colon, MOPHEAD SEWER, DIESEL POWERPLANT MECHANIC [address] [place] [address] 05/01/2024 10:30 AM VICE PRESIDENT COMPLIANCE Clinical Support [facility] [address] [address] Nurse, [facility] [place] documented as of this encounter Visit Diagnoses Not on filedocumented in this encounter Additional Health Concerns Assessment Noted Time PHQ-9 Depression Total Score: 0 12/17/19 1:37 PM CDT documented as of this encounter Care Teams Supervisor Line Department Relationship Specialty Start Date End Date Aftab Bauer MD [address] [place] [address] PCP - General Family Medicine 03/04/15 06/18/22 Provider, Not On File [place] PCP - General 06/29/22 Tito Wilson MD [address] [place] [phone] Consulting Physician Oncology 08/17/16 documented as of this encounter
[2024-04-18] MEDS: MORPHINE SULFATE (*CRX) 2 MG/ML INJ IV PUSH (11:09)
[2024-04-18] MEDS: ONDANSETRON INJ 4 MG/2 ML VIAL IV PUSH (11:43)
--- NOTE | 2024-04-18 11:58 | ED.LOWEXIN ---
HPI - Extremity Injury (Lower) General Chief Complaint: Extremity Injury, Lower Stated Complaint: glf Time Seen by Provider: 04/18/24 10:43 Source: patient Mode of arrival: EMS Limitations: no limitations History of Present Illness HPI Narrative: 73-year-old with a history of breast CA, metastatic bone disease presently on oral chemo, osteoporosis on alendronate, DVT on he Eliquis twice a day here with the complaints of fall. Patient states that he was trying to get something out of the refrigerator loss of balance and fell on her right hip. She denied any head or neck injuries. complaint: hip injury Onset (ago): minute(s) (30) Injury: Right: hip Type of Injury: other (fall) Place: home Severity: moderate Relieving factors: rest Exacerbating factors: weight bearing and movement Context: fall Other symptoms: none Related Data Home Medications ?Medication ?Instructions ?Recorded ?Confirmed ?Last Taken ?Type alendronate 70 mg tablet 70 mg PO WEEKLY 05/13/21 05/13/21 Unknown History cholecalciferol (vitamin D3) 50 50 mcg PO DAILY 05/13/21 05/13/21 Unknown History mcg (2,000 unit) capsule apixaban 2.5 mg tablet 2.5 mg PO BID 04/18/24 04/18/24 Unknown History Allergies Allergy/AdvReac Type Severity Reaction Status Date / Time No Known Allergies Allergy Verified 03/23/24 22:03 Review of Systems Review of Systems: All systems reviewed & are unremarkable except as noted in HPI and below Constitutional: Constitutional: Reports no additional constitutional complaints Eyes: Eyes: Reports no additional eye complaints ENT: Reports system reviewed and no additional complaints, except as documented Cardiovascular: Cardiovascular: Reports no additional cardiovascular complaints Respiratory: Respiratory: Reports no additional respiratory complaints Gastrointestinal: Gastrointestinal: Reports no additional gastrointestinal complaints Musculoskeletal: Musculoskeletal: Reports as per HPI Neurologic: Reports system reviewed and no additional complaints, except as documented PMFSH Past Medical History Medical History Current every day smoker 50 pack-year history Osteoporosis History of DVT of lower extremity right calf Breast cancer metastasized to bone (2015) Cancer of breast Surgical History Surgical History History of left cataract extraction (~2015) Hx of left mastectomy (~09/2015) Family History Family History Father Hypertension Diabetes mellitus Sibling Throat cancer Sibling Dementia Social History Social History Social History: lives with . 3 children/2 girls and 1 boy. 3 grandchildren. Smoking packs per day: 1 Smoking cigarettes per day: 20.0 Years smoked: 50 Smoking pack-years: 50.00 Smoking status: Current every day smoker Tobacco type: cigarettes Alcohol intake: never Substance use: never Substance use type: does not use Living arrangements: with family Occupation/Education: retired Additional occupation/education comments: Teacher Gender identity (if verbalized by the patient): Female Sexual Orientation (if Verbalized by the Patient): Straight or Heterosexual Agree to blood products: Yes Exam Narrative: GENERAL: Well-appearing, well-nourished, and in no acute distress. HEAD: Normocephalic, atraumatic. EYES: PERRLA and EOMI. ENT: Nares clear, no rhinorrhea or epistaxis. Mucous membranes moist. NECK: Supple. CHEST: Clear to auscultation. No respiratory distress. HEART: Regular rate and rhythm. No murmur heard. Normal peripheral pulses. ABDOMEN: Soft, nontender, nondistended, normal active bowel sounds. EXTREMITIES: Marked tenderness in the right hip on gentle palpation. right leg is externally rotated. SKIN: Warm, dry, no rash. NEURO: No focal deficits. Alert and oriented x3. PSYCH: Normal mood and affect. Course Course Emergency Course: Notified patient and the daughter about the lab work, x-ray findings. , discussed with the Dr. Andino, with the given complicated medical history and the metastatic bone disease prefers patient to be transferred to Trauma surgery. I discussed with the ER the at [facility] excepted the patient in transfer. Patient and the family were appreciative of transfer. Vital Signs Vital signs: Vital Signs Temperature 37.0 C 04/18/24 09:44 Pulse Rate 91 04/18/24 09:44 Respiratory Rate 16 04/18/24 09:44 Blood Pressure 119/60 04/18/24 09:44 Pulse Oximetry 98 04/18/24 09:44 Oxygen Delivery Room Air 04/18/24 09:44 Temperature 37.0 C 04/18/24 09:44 Pulse Rate 95 04/18/24 11:45 Respiratory Rate 17 04/18/24 11:45 Blood Pressure 128/71 04/18/24 11:45 Pulse Oximetry 91 04/18/24 11:45 Oxygen Delivery Room Air 04/18/24 09:44 MDM - Extremity Injury (Lower) Lab Data Attestation: I reviewed the patient's lab results. 04/18/24 12:01 04/18/24 12:01 Labs: Lab Results 04/18/24 Range/Units 12:01 WBC 7.9 (4.5-10.0) K/mm3 RBC 4.03 L (4.2-5.4) M/mm3 Hgb 11.4 L (12.0-15.0) g/dL Hct 36.7 L (37.0-47.0) % MCV 91.1 (80-100) fl MCH 28.3 (26-34) pg MCHC 31.1 L (32-36) g/dl RDW 17.1 H (11.5-14.5) % Plt Count 224 (150-375) k/mm3 MPV 8.7 (7.4-10.4) fl Immature Gran % (Auto) 0.5 (0-0.5) % Neut % (Auto) 84.3 H (45.5-73.1) % Lymph % (Auto) 8.0 L (18.3-44.2) % Ritchie % (Auto) 5.8 (2.6-8.5) % Eos % (Auto) 1.1 (0-4.4) % Baso % (Auto) 0.3 (0.2-1.2) % Lymph # (Auto) 0.63 L (0.9-3.2) K/mm3 Ritchie # (Auto) 0.5 (0.1-0.6) K/mm3 Eos # (Auto) 0.1 (0-0.3) K/mm3 Baso # (Auto) 0.0 (0.0-0.1) K/mm3 Abs Immat Gran (auto) 0.04 H (0.00-0.031) K/mm3 Absolute Neuts (auto) 6.7 (1.3-6.7) K/mm3 Absolute Nucleated RBC 0.000 (0.0-0.012) K/mm3 Nucleated RBC % 0.0 (0.0-0.2) % PT 13.9 (11.1-14.7) Seconds INR 1.0 Sodium 133 L (137-145) mmol/L Potassium 3.2 L (3.4-5.0) mmol/L Chloride 102 (98-107) mmol/L Carbon Dioxide 31 H (22-30) mmol/L Anion Gap 0 L (4-12) mmol/L BUN 20 H (7-17) mg/dL Creatinine 0.47 L (0.7-1.0) mg/dL Estim Creat Clear Calc 70 ml/min Estimated GFR > 60 (59 - ) Glucose 108 (65-110) mg/dL Calcium 9.6 (8.4-10.2) mg/dL Total Bilirubin 0.4 (0.2-1.3) mg/dL AST 39 H (14-36) U/L ALT 15 (6-35) U/L Alkaline Phosphatase 55 (38-126) U/L Total Protein 5.0 L (6.3-8.2) g/dL Albumin 3.1 L (3.5-5.1) g/dL Imaging Data Radiologist's impression: ITS Impressions Hip/Pelvis X-Ray 04/18/24 10:54 IMPRESSION: 1. Intertrochanteric and subtrochanteric fracture of proximal right femur. Chest X-Ray 04/18/24 11:02 IMPRESSION: 1. Moderate-sized right pleural effusion with mild worsening. 2. Airspace opacities at right lung base, consistent with atelectasis versus pneumonia. ECG Data EKG #1: ECG completion date: 05/07/24 ECG completion time: 11:21 EKG Interpretation: normal rate (89), sinus rhythm, no ectopy, no ST changes, normal QRS and NL axis Discharge Plan Discharge Clinical Impression: Closed hip fracture Qualifiers: Encounter type: initial encounter Laterality: right Qualified Code(s): S72.001A - Fracture of unspecified part of neck of right femur, initial encounter for closed fracture Patient Disposition: Acute Care Hospital Condition: Stable Patient Language: Vincentian Prescriptions: No Action cholecalciferol (vitamin D3) 50 mcg (2,000 unit) capsule 50 mcg PO DAILY alendronate 70 mg tablet 70 mg PO WEEKLY apixaban 2.5 mg tablet 2.5 mg PO BID Follow-up/Referrals: Katie,Tito Grider MD [Primary Care Provider] - Time of Disposition: 12:06
[2024-04-18 12:11] LABS: Basophils Percent Auto 0.3 % (0.2-1.2); Eosinophils Absolute Auto 0.1 K/mm3 (0-0.3); Eosinophils Percent Auto 1.1 % (0-4.4); Hematocrit 36.7 % (37.0-47.0); Hemoglobin 11.4 g/dL (12.0-15.0); Immature Granulocyte Absolute 0.04 K/mm3 (0.00-0.031); Immature Granulocyte Percent A 0.5 % (0-0.5); Lymphocytes Absolute Auto 0.63 K/mm3 (0.9-3.2); Mean Corpuscular HGB Conc 31.1 g/dl (32-36); Mean Corpuscular Hemoglobin 28.3 pg (26-34); Mean Corpuscular Volume 91.1 fl (80-100); Mean Platelet Volume 8.7 fl (7.4-10.4); Monocytes Absolute Auto 0.5 K/mm3 (0.1-0.6); Monocytes Percent Auto 5.8 % (2.6-8.5); Neutrophils Absolute Auto 6.7 K/mm3 (1.3-6.7); Neutrophils Percent Auto 84.3 % (45.5-73.1); Platelet Count Result 224 k/mm3 (150-375); Red Blood Count 4.03 M/mm3 (4.2-5.4); Red Cell Distribution Width 17.1 % (11.5-14.5); White Blood Count 7.9 K/mm3 (4.5-10.0)
[2024-04-18 12:22] LABS: Prothrombin Time 13.9 Seconds (11.1-14.7)
[2024-04-18 12:23] LABS: Alanine Aminotransferase 15 U/L (6-35); Albumin Level 3.1 g/dL (3.5-5.1); Alkaline Phosphatase 55 U/L (38-126); Anion Gap 0 mmol/L (4-12); Aspartate Amino Transferase 39 U/L (14-36); Bilirubin,Total 0.4 mg/dL (0.2-1.3); Blood Urea Nitrogen 20 mg/dL (7-17); Calcium 9.6 mg/dL (8.4-10.2); Carbon Dioxide 31 mmol/L (22-30); Chloride 102 mmol/L (98-107); Estimated CRCL calculation 70 ml/min; Estimated Glomerular Filt Rate > 60; Glucose 108 mg/dL (65-110); Potassium 3.2 mmol/L (3.4-5.0); Sodium 133 mmol/L (137-145)
== END 2024-04-18 13:07 | disposition short-term general hospital (02) ==
PROVIDERS: Emergency Provider Family Medicine; PCP Internal Medicine
DX: S72.141A Displaced intertrochanteric fracture of right femur, initial encounter for closed fracture (principal); S72.21XA Displaced subtrochanteric fracture of right femur, initial encounter for closed fracture; C79.51 Secondary malignant neoplasm of bone; M81.0 Age-related osteoporosis without current pathological fracture; F17.210 Nicotine dependence, cigarettes, uncomplicated; Z85.3 Personal history of malignant neoplasm of breast; Z86.718 Personal history of other venous thrombosis and embolism; Z98.42 Cataract extraction status, left eye; Z90.12 Acquired absence of left breast and nipple; Z79.899 Other long term (current) drug therapy; Z79.60 Long term (current) use of unspecified immunomodulators and immunosuppressants; Z79.01 Long term (current) use of anticoagulants; R94.31 Abnormal electrocardiogram [ECG] [EKG]; W18.39XA Other fall on same level, initial encounter
CPT/HCPCS: 36415; 71045; 73502; 80053; 85025; 85610; 93005; 96374; 96375; 99285; J2270; J2405

== ENCOUNTER 2024-06-06 09:43 | Outpatient (CLI) | payer MEDICARE, OTHER, SELFPAY ==
--- NOTE | ~2024-06-06 | XR_ITS ---
HISTORY: closed fracture of right femur COMPARISON: 04/18/2024 TECHNIQUE: 2 views of the right femur were performed FINDINGS: An intramedullary trice and screw are identified within the right femur traversing a intertrochanteric and subtrochanteric fracture. Distal alignment is maintained. Proximal alignment is near anatomic. Callus formation is present. Vascular calcifications are present. IMPRESSION: As above. Reviewed, dictated and finalized at location A. IMPRESSION: As above.
== END 2024-06-06 09:44 | disposition home or self-care (01) ==
DX: S72.91XA Unspecified fracture of right femur, initial encounter for closed fracture (principal); X58.XXXA Exposure to other specified factors, initial encounter
CPT/HCPCS: 73552